=== PATIENT | male | born 1960 | race Hispanic/Latino ===

== ENCOUNTER 2020-02-14 21:08 | Inpatient (IN) | payer OTHER, MEDICAID, SELFPAY ==
[2020-02-14] VITALS (8 sets, daily range): BP systolic 114–124; BP diastolic 65–79; PULSE 94–101; RESP 31–41; TEMP 38.4–39.6; O2SAT 83–92; BMI 27.9
--- NOTE | 2020-02-14 21:39 | DI.RAD.S_ITS ---
PROCEDURE: XR CHEST 1V INDICATIONS: flu-like symptoms TECHNIQUE: One view of the chest was acquired. COMPARISON: None. FINDINGS: Surgical changes and devices: None. Lungs and pleura: Low lung volumes are noted. This causes a crowded appearance to the lung markings and limits evaluation. Bilateral interstitial type infiltrates are seen. No pneumothorax or pleural effusions are seen. Mediastinum: Mediastinal contours appear normal. Heart size is normal. Bones and chest wall: No suspicious bony lesions. Age-appropriate bony degenerative changes are seen. Overlying soft tissues appear unremarkable. IMPRESSION: Bilateral interstitial infiltrates are seen. Please consider COVID pneumonia. Note: No significant discrepancy from the preliminary report. Dictated by: Tutu Martinez M.D. on 02/15/2020 at 8:16 Approved by: Tutu Martinez M.D. on 02/15/2020 at 8:16
[2020-02-14 21:58] LABS: Add Manual Diff / Slide Review NO; Basophils Absolute Auto 0 /uL (0-100); Basophils Percent Auto 0.2 % (0-2); Eosinophils Absolute Auto 0 /uL (0-450); Hematocrit 38.6 % (41-53); Lymphocytes Absolute Auto 1000 /uL (1100-4500); Lymphocytes Percent Auto 6.1 % (25-40); Mean Corpuscular HGB Conc 33.7 % (30-36); Mean Corpuscular Hemoglobin 30.5 PG (26-34); Mean Corpuscular Volume 90.4 fL (80-100); Monocytes Absolute Auto 700 /uL (0-900); Monocytes Percent Auto 4.1 % (3-14); Neutrophils Absolute Auto 14300 /uL (1500-7000); Neutrophils Percent Auto 89.6 % (50-75); Platelet Count 318 X10^3/uL (150-400); Red Blood Cell Count 4.27 X10^6/uL (4.5-5.9); Red Cell Distribution Width 13.3 % (11.6-14.8); White Blood Cell Count 15.9 X10^3/uL (4.5-11.0)
[2020-02-14] MEDS: ACETAMINOPHEN 325 MG TABLET 975 MG PO (21:58)
[2020-02-14 22:08] LABS: D Dimer 751 ng/mL (<230); Lactate (Lactic Acid) 1.6 mmol/L (0.7-2.1)
[2020-02-14 22:21] LABS: Alanine Aminotransferase 83 IU/L (<50); Albumin 3.8 g/dL (3.5-5.0); Alkaline Phosphatase 122 U/L (38-126); Aspartate Aminotransferase 68 IU/L (17-59); BUN Creatinine Ratio 19.4 (6-22); Bilirubin Total 0.5 mg/dL (0.2-1.3); Blood Urea Nitrogen 14 mg/dL (9-20); Calcium 9.1 mg/dL (8.4-10.2); Carbon Dioxide 26 mmol/L (22-32); Chloride 104 mmol/L (98-107); Creatine Kinase 181 U/L (55-170); Estimated Glomerular Filt Rate > 60.0 mL/min (>60); Glucose 169 mg/dL (70-100); HEMOLYSIS < 15 (0-50); Lactate Dehydrogenase 981 U/L (313-618); Sodium 137 mmol/L (137-145); Total Protein 7.8 g/dL (6.3-8.2)
--- NOTE | 2020-02-14 22:26 | ED.SOB ---
HPI - SOB/Dyspnea General Chief Complaint: Shortness of Breath/Dyspnea Stated Complaint: cough, sob, low O2 Time Seen by Provider: 02/14/20 21:22 Source: patient and family Mode of arrival: Wheelchair Limitations: language barrier History of Present Illness HPI Narrative: Patient is a 59-year-old male who is Macedonian speaking with to interpret he is a known positive COVID-19 patient. He actually tested positive last week, after his son tested positive from working in a nursing home home. He was seen and evaluated at [facility] twice this week for some a 2nd and then again yesterday and discharged home both times saying that he did not need to be admitted. He has been monitoring his oxygen with a home pulse oximeter and self pronating which does help. However today he has had low oxygen numbers in 83% and sometimes even 77 when he is coughing. He is febrile here. MD Complaint: shortness of breath and cough Onset (ago): day(s) Related Data Home Medications Medication Instructions Recorded Confirmed Vitamin D3 1 cap PO DAILY 02/15/20 02/15/20 albuterol sulfate 2 puff INHALATION Q4H PRN 02/15/20 02/15/20 lisinopril 10 mg PO DAILY 02/15/20 02/15/20 Allergies Allergy/AdvReac Type Severity Reaction Status Date / Time No Known Drug Allergies Allergy Verified 02/14/20 22:09 Review of Systems Review of Systems ROS Unobtainable: All systems reviewed & are unremarkable except as noted in HPI and below Constitutional Constitutional: Denies chills, Denies fever(s), Denies lethargy and Denies weakness Cardiovascular Cardiovascular: Denies chest pain, Denies irregular heart rhythm, Denies lightheadedness, Denies palpitations and Denies orthopnea Respiratory Respiratory: Reports as per HPI Gastrointestinal Gastrointestinal: Denies abdominal pain, Denies change in bowel habits, Denies diarrhea, Denies nausea and Denies vomiting Integumentary/Breasts Skin/Breast: Denies pruritus, Denies erythema, Denies rash and Denies wounds Neurologic Neurologic: Denies weakness Endocrine Endocrine: Denies palpitations Patient History Medical History Basal cell carcinoma Chronic pain syndrome Hyperlipidemia Hypertension Prediabetes Surgical History (Updated 02/15/20 @ 00:49 by FLAQUITO Marin) History of appendectomy History of hernia repair History of knee surgery Family History (Updated 02/15/20 @ 00:49 by FLAQUITO Marin) Father Diabetes mellitus Mother COPD (chronic obstructive pulmonary disease) Social History household members: spouse and children Smoking Status: Never smoker alcohol intake: current Smoking Status: Never smoker alcohol intake frequency: a few times a week Alcohol type: beer Substance Use Type: does not use Exam Initial Vital Signs Initial Vital Signs: Vital Signs Temperature 103.2 F H 02/14/20 21:10 Pulse Rate 100 H 02/14/20 21:10 Respiratory Rate 31 H 02/14/20 21:10 Blood Pressure 124/79 02/14/20 21:10 Pulse Oximetry 83 L 02/14/20 21:10 GENERAL: Alert male appears in mild distress HEENT: Head atraumatic,EOMI, pupils reactive, face symmetric, moist mucous membranes CARDIOVASCULAR: Regular rate and rhythm without murmurs, rubs or gallops. RESPIRATORY: Decreased breath sounds bilaterally ABDOMEN: Soft, nontender. Normoactive bowel sounds all 4 quadrants. No guarding or rebound. EXTREMITIES: Normal range of motion, no clubbing or edema. Neurovascularly intact NEUROLOGICAL: Alert and oriented x4.Normal gait and speech. SKIN: Warm, dry, no laceration, no petechiae, no rashes or lesions. Course Orders Ordered: ED Orders 02/14/20 21:30 C-Reactive Protein Quant Stat Complete Blood Count AUTO DIFF Stat Comprehensive Metabolic Panel Stat D Dimer Stat Ferritin Stat Lactate (Lactic Acid) Stat Lactate Dehydrogenase Stat NT-proBNP (BNP-Adult 18+) Stat Procalcitonin Stat Troponin & CK Cardiac Panel Stat 02/14/20 21:39 XR chest 1V Stat 02/14/20 21:52 EKG-12 Lead Stat 02/14/20 22:00 Blood Culture Stat 02/14/20 22:08 Arterial Blood Gas Stat 02/14/20 23:00 COVID19 Stat Acetaminophen (Acetaminophen 325 Mg Tablet) 650 mg PO Q4HR REGINO Last Admin: 02/15/20 01:38 Dose: 650 mg Documented by: DLOUIS Albuterol (Albuterol Hfa 200 Puff/18 Gm Inh (Covid Pos/Vent Pts)) 2 puff INH RTQ4HR PRN PRN Reason: Wheezing Dexamethasone (Dexamethasone 10 Mg/Ml Vial) 6 mg IV DAILY [facility] Last Admin: 02/15/20 02:51 Dose: Not Given Documented by: JAROD Dextrose (Dextrose 50 % In Water 25 Gm/50 Ml Syringe) 25 gm IV PRN PRN; Protocol PRN Reason: Hypoglycemia Docusate Sodium (Docusate 100 Mg Capsule) 100 mg PO BID [facility] Guaifenesin (Guaifenesin Er 600 Mg Tab) 600 mg PO BID [facility] Heparin Sodium (Porcine) (Heparin 5,000 Unit/Ml Vial) 5,000 unit SUBCUT BID [facility] Famotidine (Pepcid) 20 mg in 50 mls @ 200 mls/hr IV Q12HR [facility] Last Admin: 02/15/20 02:18 Dose: 200 mls/hr Documented by: JAROD Remdesivir 100 mg/ Sodium (Chloride) 250 mls @ 250 mls/hr IV Q24H [facility] Stop: 02/18/20 23:59 Last Admin: 02/15/20 01:00 Dose: 250 mls/hr Documented by: JAROD Insulin Aspart (Insulin Aspart 100 Unit/Ml Insuln Pen) 0 unit SUBCUT ACHS [facility]; Protocol Lisinopril (Lisinopril 10 Mg Tablet) 10 mg PO DAILY [facility] Melatonin (Melatonin 3 Mg Tablet) 6 mg PO BEDTIME [facility] Last Admin: 02/15/20 01:39 Dose: 6 mg Documented by: JAROD Naloxone HCl (Naloxone 0.4 Mg/Ml Vial) 0.2 mg IV Q2MIN PRN PRN Reason: Opiate Reversal Non-Formulary Medication (Vitamin D3) 1 cap PO DAILY [facility] Ondansetron HCl (Ondansetron 4 Mg/2 Ml Inj) 4 mg IV Q8HR PRN PRN Reason: Nausea And Vomiting Tramadol HCl (Tramadol 50 Mg Tablet) 50 mg PO QID PRN PRN Reason: Pain, Moderate (4-6) Vitamin D (Cholecalciferol (Vitamin D3) 1,000 Unit Tablet) 2,000 unit PO DAILY [facility] Discontinued Medications Acetaminophen (Acetaminophen 325 Mg Tablet) 975 mg PO NOW ONE Stop: 02/14/20 21:53 Last Admin: 02/14/20 21:58 Dose: 975 mg Documented by: REYMUNDO Dexamethasone (Dexamethasone 10 Mg/Ml Vial) 6 mg IV NOW ONE Stop: 02/14/20 23:18 Last Admin: 02/14/20 23:57 Dose: 6 mg Documented by: REYMUNDO Remdesivir 200 mg/ Sodium (Chloride) 250 mls @ 250 mls/hr IV NOW ONE Stop: 02/14/20 23:18 Last Admin: 02/14/20 23:58 Dose: 250 mls/hr Documented by: REYMUNDO Vital Signs Vital signs: Vital Signs - 8 hr 02/14/20 21:10 02/14/20 21:58 02/14/20 22:05 Temperature 103.2 F H 103.2 F H Pulse Rate 100 H 96 H Respiratory Rate 31 H 38 H Blood Pressure 124/79 Pulse Oximetry 83 L 89 L 02/14/20 22:30 02/14/20 22:59 02/14/20 23:00 Temperature Pulse Rate 101 H 99 H 94 H Respiratory Rate 39 H 41 H 36 H Blood Pressure 114/65 115/68 Pulse Oximetry 90 L 92 92 02/14/20 23:30 02/14/20 23:33 Temperature 101.1 F H Pulse Rate 95 H Respiratory Rate 33 H Blood Pressure 120/74 Pulse Oximetry 92 MDM - SOB/Dyspnea Lab Data Attestation: I reviewed the patient's lab results. Result diagrams: 02/14/20 21:30 02/14/20 21:30 Labs: Lab Results 02/14/20 02/14/20 02/14/20 Range/Units 21:30 21:30 21:30 WBC 15.9 H (4.5-11.0) X10^3/uL RBC 4.27 L (4.5-5.9) X10^6/uL Hgb 13.0 L (13.5-17.5) g/dL Hct 38.6 L (41-53) % MCV 90.4 (80-100) fL MCH 30.5 (26-34) PG MCHC 33.7 (30-36) % RDW 13.3 (11.6-14.8) % Plt Count 318 (150-400) X10^3/uL Neut % (Auto) 89.6 H (50-75) % Lymph % (Auto) 6.1 L (25-40) % [place] % (Auto) 4.1 (3-14) % Eos % (Auto) 0.0 L (2-4) % Baso % (Auto) 0.2 (0-2) % Neut # (Auto) 37691 H (8353-3635) /uL Lymph # (Auto) 1000 L (6342-8746) /uL [place] # (Auto) 700 (0-900) /uL Eos # (Auto) 0 (0-450) /uL Baso # (Auto) 0 (0-100) /uL D-Dimer 751 H (<230) ng/mL ABG pH (7.35-7.45) ABG pCO2 (35-45) mmHg ABG pO2 (80-100) mmHg ABG HCO3 (22-26) mmol/L ABG Total CO2 (21-31) mmol/L ABG O2 Saturation (95-100) % ABG Base Excess (-2-2) mmol/L FiO2 Sodium (137-145) mmol/L Potassium (3.4-5.1) mmol/L Chloride (98-107) mmol/L Carbon Dioxide (22-32) mmol/L BUN (9-20) mg/dL Creatinine (0.66-1.25) mg/dL Estimated GFR (>60) mL/min BUN/Creatinine Ratio (6-22) Glucose (70-100) mg/dL Lactate (0.7-2.1) mmol/L Calcium (8.4-10.2) mg/dL Magnesium (1.6-2.3) mg/dL Ferritin (18-464) ng/mL Total Bilirubin (0.2-1.3) mg/dL AST (17-59) IU/L ALT (<50) IU/L Alkaline Phosphatase (38-126) U/L Lactate Dehydrogenase (313-618) U/L Total Creatine Kinase (55-170) U/L CK-MB (CK-2) (<2.37) ng/mL CK-MB (CK-2) Rel Index (1.5-5.0) % Troponin I (0.01-0.034) ng/mL C-Reactive Protein (<1.0) mg/dL NT-Pro-B Natriuret Pep (<125) pg/mL Total Protein (6.3-8.2) g/dL Albumin (3.5-5.0) g/dL Globulin (1.7-4.1) g/dL Albumin/Globulin Ratio (1.0-2.8) Procalcitonin 0.13 (<0.5) ng/mL COVID-19 PCR (Negative) 02/14/20 02/14/20 02/14/20 Range/Units 21:30 21:30 21:30 WBC (4.5-11.0) X10^3/uL RBC (4.5-5.9) X10^6/uL Hgb (13.5-17.5) g/dL Hct (41-53) % MCV (80-100) fL MCH (26-34) PG MCHC (30-36) % RDW (11.6-14.8) % Plt Count (150-400) X10^3/uL Neut % (Auto) (50-75) % Lymph % (Auto) (25-40) % [place] % (Auto) (3-14) % Eos % (Auto) (2-4) % Baso % (Auto) (0-2) % Neut # (Auto) (6149-4100) /uL Lymph # (Auto) (8188-6083) /uL [place] # (Auto) (0-900) /uL Eos # (Auto) (0-450) /uL Baso # (Auto) (0-100) /uL D-Dimer (<230) ng/mL ABG pH (7.35-7.45) ABG pCO2 (35-45) mmHg ABG pO2 (80-100) mmHg ABG HCO3 (22-26) mmol/L ABG Total CO2 (21-31) mmol/L ABG O2 Saturation (95-100) % ABG Base Excess (-2-2) mmol/L FiO2 Sodium 137 (137-145) mmol/L Potassium 4.0 (3.4-5.1) mmol/L Chloride 104 (98-107) mmol/L Carbon Dioxide 26 (22-32) mmol/L BUN 14 (9-20) mg/dL Creatinine 0.72 (0.66-1.25) mg/dL Estimated GFR > 60.0 (>60) mL/min BUN/Creatinine Ratio 19.4 (6-22) Glucose 169 H (70-100) mg/dL Lactate 1.6 (0.7-2.1) mmol/L Calcium 9.1 (8.4-10.2) mg/dL Magnesium 2.4 H (1.6-2.3) mg/dL Ferritin 1330 H (18-464) ng/mL Total Bilirubin 0.5 (0.2-1.3) mg/dL AST 68 H (17-59) IU/L ALT 83 H (<50) IU/L Alkaline Phosphatase 122 (38-126) U/L Lactate Dehydrogenase 981 H (313-618) U/L Total Creatine Kinase 181 H (55-170) U/L CK-MB (CK-2) 0.51 (<2.37) ng/mL CK-MB (CK-2) Rel Index 0.3 L (1.5-5.0) % Troponin I < 0.012 (0.01-0.034) ng/mL C-Reactive Protein 16.7 H (<1.0) mg/dL NT-Pro-B Natriuret Pep 414 H (<125) pg/mL Total Protein 7.8 (6.3-8.2) g/dL Albumin 3.8 (3.5-5.0) g/dL Globulin 4.0 (1.7-4.1) g/dL Albumin/Globulin Ratio 1.0 (1.0-2.8) Procalcitonin (<0.5) ng/mL COVID-19 PCR (Negative) 02/14/20 02/14/20 Range/Units 22:08 23:00 WBC (4.5-11.0) X10^3/uL RBC (4.5-5.9) X10^6/uL Hgb (13.5-17.5) g/dL Hct (41-53) % MCV (80-100) fL MCH (26-34) PG MCHC (30-36) % RDW (11.6-14.8) % Plt Count (150-400) X10^3/uL Neut % (Auto) (50-75) % Lymph % (Auto) (25-40) % [place] % (Auto) (3-14) % Eos % (Auto) (2-4) % Baso % (Auto) (0-2) % Neut # (Auto) (1438-3292) /uL Lymph # (Auto) (2632-9460) /uL [place] # (Auto) (0-900) /uL Eos # (Auto) (0-450) /uL Baso # (Auto) (0-100) /uL D-Dimer (<230) ng/mL ABG pH 7.50 H (7.35-7.45) ABG pCO2 29.8 L (35-45) mmHg ABG pO2 55 L (80-100) mmHg ABG HCO3 23 (22-26) mmol/L ABG Total CO2 24 (21-31) mmol/L ABG O2 Saturation 91 L (95-100) % ABG Base Excess 0.0 (-2-2) mmol/L FiO2 32 Sodium (137-145) mmol/L Potassium (3.4-5.1) mmol/L Chloride (98-107) mmol/L Carbon Dioxide (22-32) mmol/L BUN (9-20) mg/dL Creatinine (0.66-1.25) mg/dL Estimated GFR (>60) mL/min BUN/Creatinine Ratio (6-22) Glucose (70-100) mg/dL Lactate (0.7-2.1) mmol/L Calcium (8.4-10.2) mg/dL Magnesium (1.6-2.3) mg/dL Ferritin (18-464) ng/mL Total Bilirubin (0.2-1.3) mg/dL AST (17-59) IU/L ALT (<50) IU/L Alkaline Phosphatase (38-126) U/L Lactate Dehydrogenase (313-618) U/L Total Creatine Kinase (55-170) U/L CK-MB (CK-2) (<2.37) ng/mL CK-MB (CK-2) Rel Index (1.5-5.0) % Troponin I (0.01-0.034) ng/mL C-Reactive Protein (<1.0) mg/dL NT-Pro-B Natriuret Pep (<125) pg/mL Total Protein (6.3-8.2) g/dL Albumin (3.5-5.0) g/dL Globulin (1.7-4.1) g/dL Albumin/Globulin Ratio (1.0-2.8) Procalcitonin (<0.5) ng/mL COVID-19 PCR Positive H (Negative) Imaging Data Chest x-ray: Radiologist's Impression: Diffuse bilateral infiltrate suspicious for pneumonitis ECG Data Attestation: I personally reviewed and interpreted this ECG as follows: Prior ECG tracings: not available for review Interpretation: Normal sinus rhythm rate 94 p.r. interval 136 QR S1 O2 QTC [address] changes no T-wave inversions no priors to compare MDM Narrative Medical decision making narrative: Patient is obviously requiring oxygen at this time. He is febrile he has elevated inflammatory markers. At this time he does require admission to the hospital. He is requesting not to be intubated I have discussed options with him he is agreeable to nasal cannula high flow. He has had multiple family members with intubations so he is fearful of it. He understands that without it he may as well. However at this time he does not want to. I have updated Klaus HUDDLESTON of patient's wishes signs and symptoms. This time he does agree with admission he is in ED to see and evaluate patient himself and to speak with the . Discharge Plan Departure Patient Disposition: Admitted As Inpatient Clinical Impression: COVID-19 Admit Date/Time: 02/14/20 23:43 Admit Provider: Jacob Alejo
[2020-02-14 22:31] LABS: NT-proBNP (BNP-Adult 18+) 414 pg/mL (<125); Troponin I < 0.012 ng/mL (0.01-0.034)
[2020-02-14 22:34] LABS: HCO3 ABG 23 mmol/L (22-26); PCO2 ABG 29.8 mmHg (35-45); PO2 ABG 55 mmHg (80-100)
[2020-02-14 22:34] LABS: Procalcitonin 0.13 ng/mL (<0.5)
[2020-02-14 22:35] LABS: Fractionated Inspired Oxygen 32; Oxygen Saturation ABG 91 % (95-100); TCO2 ABG 24 mmol/L (21-31)
[2020-02-14 22:36] LABS: C-Reactive Protein Quant 16.7 mg/dL (<1.0)
[2020-02-14 23:38] LABS: CKMB % Relative Index 0.3 % (1.5-5.0); Creatine Kinase MB 0.51 ng/mL (<2.37); Ferritin 1330 ng/mL (18-464)
[2020-02-14 23:38] LABS: COVID19 -Nasal RAPID POSITIVE (Negative)
--- NOTE | 2020-02-14 23:46 | PM.HP.1 ---
History of Present Illness History of Present Illness Date Patient Seen: 02/14/20 Time Patient Seen: 23:41 Chief complaint: cough, sob, low O2 Narrative: Mr. Caleb Hyman is a 59-year-old male who is Irish-speaking only who is a known COVID hot is patient with a past medical history significant only for hypertension (medical records from [facility] further identify pre diabetes, hyperlipidemia and chronic pain syndrome as well as basal cell carcinoma) who presents to the ER with fevers and worsening shortness of breath. The patient has been ill for 13 days after his son tested positive who was working at a senior living. The patient has tested positive for COVID-19 and seen twice at [facility] and discharged to home. Yesterday on his 04 14 visit Yesterday the patient was seen and chest x-ray taken which demonstrated worsening bilateral patchy airspace opacities with the patient was not hypoxic and was discharged home with a pulse oximeter and instructions to prone 8 hours at a time. Today the patient was developing high fevers with progressive shortness of breath as measured by pulse ox down into the 70s with activity and lower with coughing. The patient denies complaints of headaches or dizziness, has no visual changes, nasal congestion or sore throat. He denies chest pain and no chest wall pain on deep inspiration. He has no palpitations. Has significant dyspnea, only being able to speak few words without taking a breath. He has a productive cough clear sputum and denies wheezing. He endorses complaints of epigastric discomfort/heartburn but no abdominal pain, nausea vomiting. The patient states his last bowel movement was this afternoon and denies urinary difficulties. Does report left knee pain and uses assistive devices at home. Upon arrival to the ER the patient is febrile at of 103.2?, tachycardic at 100, blood pressure 124/79 tachypneic with a respiratory rate of 31 saturating 83% on room air. Chest x-ray obtained which finds diffuse bilateral infiltrates suspicious for pneumonitis. ABG is obtained which finds a pH of 7.5, pCO2 of 29.8, PO2 55, bicarb of 23 on 35% FiO2. Laboratory analysis finds a white count of 15.9, hemoglobin 13.0, hematocrit of 38.6 and platelets of 318. His electrolytes are all within normal range she has a BUN of 14 and a creatinine is 0.72. His nonfasting blood sugar is 169. On liver function has a total bilirubin of 0.5, AST 60, ALT of 83 and alkaline phosphatase of 122. D-dimer is elevated at 751. LDH is elevated at 981 and total CK is 181 with MB fraction of 0.51 with an index of 0.3. Troponin is negative at less than 0.012. His elevated C reactive from protein at 16.7 and a proBNP of 414. Lactic acid is 1.6. Procalcitonin is within normal range at 0.13. Patient started on oxygen nasal cannula 5 L with improvement in oxygen saturation to mid 90s incomplete relief of dyspnea. The patient is given Tylenol for his fever and started on remdesivir 200 mg and Decadron 6 mg. The patient is admitted to the hospitalist service for COVID 19 pneumonia. Primary care provider is Suma Dawson MD Patient History Medical History Basal cell carcinoma Chronic pain syndrome Hyperlipidemia Hypertension Prediabetes Surgical History (Updated 02/15/20 @ 00:49 by FLAQUITO Marin) History of appendectomy History of hernia repair History of knee surgery Family & Social History Family History (Updated 02/15/20 @ 00:49 by FLAQUITO Marin) Father Diabetes mellitus Mother COPD (chronic obstructive pulmonary disease) Safety & Behavioral: Feels Safe in Current Yes Environment Tobacco & Substance use: Smoking Status Never smoker alcohol intake frequency a few times a week Substance Use Type does not use Meds Home Medications and Allergies Home Medications Medication Instructions Recorded Confirmed Type Vitamin D3 1 cap PO DAILY 02/15/20 02/15/20 History albuterol sulfate 2 puff INHALATION Q4H PRN 02/15/20 02/15/20 History lisinopril 10 mg PO DAILY 02/15/20 02/15/20 History Allergies Allergy/AdvReac Type Severity Reaction Status Date / Time No Known Drug Allergies Allergy Verified 02/14/20 22:09 Review of Systems Review of Systems ROS: Yes All systems reviewed with the patient and are negative except as otherwise documented Exam Vital Signs (past 8 hours): - 02/14/20 21:10 02/14/20 21:58 02/14/20 22:05 Temperature 103.2 F H 103.2 F H Pulse Rate 100 H 96 H Respiratory Rate 31 H 38 H Blood Pressure 124/79 Pulse Oximetry 83 L 89 L 02/14/20 22:30 02/14/20 22:59 02/14/20 23:00 Temperature Pulse Rate 101 H 99 H 94 H Respiratory Rate 39 H 41 H 36 H Blood Pressure 114/65 115/68 Pulse Oximetry 90 L 92 92 02/14/20 23:30 02/14/20 23:33 02/15/20 00:29 Temperature 101.1 F H 99.4 F Pulse Rate 95 H 83 Respiratory Rate 33 H 18 Blood Pressure 120/74 130/56 L Pulse Oximetry 92 95 Oxygen Delivery Method Nasal Cannula Oxygen Flow Rate 5 Narrative Exam Narrative: GENERAL APPEARANCE: well developed, well nourished, sitting upright on ER stretcher conversant with mild dyspnea. HEENT: Normocephalic, PERRLA, conjunctiva clear, sclera is anicteric, EOMs intact without nystagmus, no sinus tenderness to percussion, no rhinorrhea, mucous membranes are moist and pink without lesions or exudate. NECK/THYROID: neck supple, no JVD, no carotid bruit, no thyromegaly, trachea midline. LYMPH NODES: no cervical or supraclavicular lymphadenopathy. SKIN: [place], warm and dry, no visible lesions or rashes HEART: regular rate and rhythm, S1-split S2, no murmur, no rubs or gallops, brisk capillary refill, no edema LUNGS: clear to auscultation bilaterally, no coarseness crackles or wheezing, no cough present CHEST: Symmetrical movement, no accessory muscle use, good tidal volume. ABDOMEN: Soft, no distention, no abdominal tenderness, no guarding or peritoneal signs, no organomegaly, no flank or suprapubic tenderness, active bowel tones. BACK: Normal curvature, nontender to palpation, no CVA tenderness on percussion EXTREMITIES: Left knee pain strength is 5/5 and symmetrical, gait not assessed. NEUROLOGIC: AAO x4, no focal neurologic deficits, cranial nerves II-XII grossly intact, sensation intact to light touch, hearing grossly normal to speech. PSYCH: Briskly interactive, cooperative, appropriate with stable behavior Objective Labs Result Diagrams: 02/14/20 21:30 02/14/20 21:30 Labs: Laboratory Results - last 24 hr 02/14/20 02/14/20 02/14/20 21:30 21:30 21:30 WBC 15.9 H RBC 4.27 L Hgb 13.0 L Hct 38.6 L MCV 90.4 MCH 30.5 MCHC 33.7 RDW 13.3 Plt Count 318 Neut % (Auto) 89.6 H Lymph % (Auto) 6.1 L Ness % (Auto) 4.1 Eos % (Auto) 0.0 L Baso % (Auto) 0.2 Neut # (Auto) 51912 H Lymph # (Auto) 1000 L Ness # (Auto) 700 Eos # (Auto) 0 Baso # (Auto) 0 D-Dimer 751 H ABG pH ABG pCO2 ABG pO2 ABG HCO3 ABG Total CO2 ABG O2 Saturation ABG Base Excess FiO2 Sodium Potassium Chloride Carbon Dioxide BUN Creatinine Estimated GFR BUN/Creatinine Ratio Glucose Lactate Calcium Ferritin Total Bilirubin AST ALT Alkaline Phosphatase Lactate Dehydrogenase Total Creatine Kinase CK-MB (CK-2) CK-MB (CK-2) Rel Index Troponin I C-Reactive Protein NT-Pro-B Natriuret Pep Total Protein Albumin Globulin Albumin/Globulin Ratio Procalcitonin 0.13 COVID-19 PCR 02/14/20 02/14/20 02/14/20 21:30 21:30 22:08 WBC RBC Hgb Hct MCV MCH MCHC RDW Plt Count Neut % (Auto) Lymph % (Auto) Ness % (Auto) Eos % (Auto) Baso % (Auto) Neut # (Auto) Lymph # (Auto) Ness # (Auto) Eos # (Auto) Baso # (Auto) D-Dimer ABG pH 7.50 H ABG pCO2 29.8 L ABG pO2 55 L ABG HCO3 23 ABG Total CO2 24 ABG O2 Saturation 91 L ABG Base Excess 0.0 FiO2 32 Sodium 137 Potassium 4.0 Chloride 104 Carbon Dioxide 26 BUN 14 Creatinine 0.72 Estimated GFR > 60.0 BUN/Creatinine Ratio 19.4 Glucose 169 H Lactate 1.6 Calcium 9.1 Ferritin 1330 H Total Bilirubin 0.5 AST 68 H ALT 83 H Alkaline Phosphatase 122 Lactate Dehydrogenase 981 H Total Creatine Kinase 181 H CK-MB (CK-2) 0.51 CK-MB (CK-2) Rel Index 0.3 L Troponin I < 0.012 C-Reactive Protein 16.7 H NT-Pro-B Natriuret Pep 414 H Total Protein 7.8 Albumin 3.8 Globulin 4.0 Albumin/Globulin Ratio 1.0 Procalcitonin COVID-19 PCR 02/14/20 23:00 WBC RBC Hgb Hct MCV MCH MCHC RDW Plt Count Neut % (Auto) Lymph % (Auto) Ness % (Auto) Eos % (Auto) Baso % (Auto) Neut # (Auto) Lymph # (Auto) Ness # (Auto) Eos # (Auto) Baso # (Auto) D-Dimer ABG pH ABG pCO2 ABG pO2 ABG HCO3 ABG Total CO2 ABG O2 Saturation ABG Base Excess FiO2 Sodium Potassium Chloride Carbon Dioxide BUN Creatinine Estimated GFR BUN/Creatinine Ratio Glucose Lactate Calcium Ferritin Total Bilirubin AST ALT Alkaline Phosphatase Lactate Dehydrogenase Total Creatine Kinase CK-MB (CK-2) CK-MB (CK-2) Rel Index Troponin I C-Reactive Protein NT-Pro-B Natriuret Pep Total Protein Albumin Globulin Albumin/Globulin Ratio Procalcitonin COVID-19 PCR Positive H Assessment & Plan Assessment & Plan narrative: This is a 59-year-old male patient with a past medical history significant for hypertension, prediabetes hyperlipidemia chronic pain syndrome who presents to the ER with progressive COVID-19 symptoms. The patient has been symptomatic for 13 days and is previously tested positive with serial evaluations at [facility] but not yet found to be hypoxic. Patient presents today with fevers and progressive dyspnea. 1. Sepsis without shock, acute, present on admission, active -patient reports onset of symptoms 13 days ago and has been becoming progressively worse. Patient is seen the previous 2 days at [facility] where he was found not to yet be hypoxic. -patient with acute decompensation of the respiratory system with a PF ratio of less than 300. -patient presents with a respiratory rate of 31 saturating 83% on room air. -will treat underlying COVID-19 pneumonia as below. 2. Acute respiratory failure with hypoxia, present on admission, active -on presentation the patient's respiratory rate of 31 with an SpO2 of 83 on room air. ABG reveals a pH of 7.5, pCO2 of 29.8, PaO2 of 55, bicarb of 23 with a base excess of 0 on 32% FiO2. -patient started on supplemental oxygen with nasal cannula 5 liters/minute, Respiratory rate improves to 18 and SpO2 is 95%. Will titrate oxygen as needed. -per pulmonology recommendations will target goal SpO2 greater than 88%, PaO2 greater than 55% and respiratory rate less than 30 at rest. -will treat underlying COVID-19 pneumonia as below. -respiratory therapy to consult evaluate and treat. -patient will remain on continuous pulse oximetry and cardiac telemetry. 3. Acute COVID-19 pneumonia, present on admission, active. -patient has previously tested positive for COVID-19 and again tests positive on COVID screening today. -patient has other confirmatory markers including an elevated D-dimer at 751, CRP elevated at 16.7, LDH of 981 ferritin is 1330 elevated total CK of 181 with a low MB fraction at 0.51 an index of 0.3. Troponin is negative slight elevation of proBNP of 414. Procalcitonin is-0.13. -chest x-ray finds diffuse bilateral infiltrates suspicious for pneumonitis. -patient has been running and will continue to prone aggressively. -order remdesivir, initial loading dose of 200 mg initiated in the emergency department, will continue remdesivir 100 mg IV daily for 4 doses. -ordered dexamethasone 6 mg IV daily, 1st dose given in the ER. -ordered albuterol inhaler 2 puffs every 4 hours as needed for wheezing only. -ordered melatonin 6 mg at bedtime for both sleep promotion as well as potential antiviral effects. 4. Pre diabetes with hyperglycemia, chronic, stable. -patient is not on glucose lowering medication and has an admission serum glucose of 169. -the patient will be receiving Decadron with expected elevation in serum glucose levels. -ordered fingerstick blood sugars a.c. and hs and coverage with low-dose correctional insulin. -will trend blood sugars to maintain glycemic control. -will obtain a hemoglobin A1c. 5. Hypertension, chronic, stable. -will continue home regimen of lisinopril 10 mg daily in accordance with current recommendations to continue Daryl inhibitor in patient's on the medication with COVID-19 pneumonia. 6. Hyperlipidemia, chronic, stable. -the patient states not currently taking medication for cholesterol. Per the medical record from [facility] this atorvastatin 20 mg daily. -will obtain a lipid panel. VTE prophylaxis: Heparin IV fluid: Saline lock Diet: Small Consistent carbohydrate Code status: Full code, the patient wishes CPR but states DO NOT INTUBATE. The patient has 2 family members in [place] or intubated and from COVID-19. He designates his to as is surrogate decision maker. Patient is admitted to the hospital due to the progression in severity of his symptoms for close monitoring and treatment to reduce the risk for at complications and adverse events and the complexity of the treatment plan. The patient is admitted as an inpatient with expected length of stay to be greater than 2 midnights. COVID-19 COVID-19 status: Positive Result date/Date tested (Pos, Neg/Pending): 02/14/20 Scores GCS [place] coma scale eye opening: Spontaneous [place] coma scale verbal response: Orientated [place] coma scale motor response: Obey commands [place] coma scale total score: 15 SOFA PaO2/FIO2: < 300 mmHg Platelets: >= 150 Bilirubin: < 1.2 mg/dL Hypotension: MAP >= 70 mmHg [place] Coma Scale: 15 Renal: < 1.2 mg/dL SOFA Score: 2
[2020-02-14] MEDS: DEXAMETHASONE 10 MG/ML VIAL 6 MG IV (23:57)
[2020-02-14] MEDS: REMDESIVIR 200 MG in SODIUM CHLORIDE 0.9% 210 ML 250 ML IV (23:58)
[2020-02-15] VITALS (43 sets, daily range): BP systolic 115–143; BP diastolic 56–95; PULSE 64–87; RESP 15–34; TEMP 36.8–37.4; O2SAT 89–99; BMI 27.9
[2020-02-15 00:54] LABS: Magnesium 2.4 mg/dL (1.6-2.3)
[2020-02-15] MEDS: REMDESIVIR 100 MG in SODIUM CHLORIDE 0.9% 230 ML 250 ML IV (01:00)
[2020-02-15] MEDS: ACETAMINOPHEN 325 MG TABLET 650 MG PO ×4 (01:38→12:42)
[2020-02-15] MEDS: MELATONIN 3 MG TABLET 6 MG PO ×2 (01:39→20:19)
[2020-02-15] MEDS: FAMOTIDINE 20 MG/50 ML PIGGYBACK 200 MG IV ×2 (02:18→12:42)
[2020-02-15 06:00] LABS: Add Manual Diff / Slide Review NO; Basophils Absolute Auto 0 /uL (0-100); Basophils Percent Auto 0.1 % (0-2); Eosinophils Absolute Auto 0 /uL (0-450); Hematocrit 40.6 % (41-53); Hemoglobin 13.4 g/dL (13.5-17.5); Lymphocytes Absolute Auto 1400 /uL (1100-4500); Lymphocytes Percent Auto 7.7 % (25-40); Mean Corpuscular Hemoglobin 30.4 PG (26-34); Monocytes Absolute Auto 900 /uL (0-900); Monocytes Percent Auto 4.9 % (3-14); Neutrophils Absolute Auto 15700 /uL (1500-7000); Neutrophils Percent Auto 87.3 % (50-75); Platelet Count 290 X10^3/uL (150-400); Red Blood Cell Count 4.41 X10^6/uL (4.5-5.9); Red Cell Distribution Width 13.3 % (11.6-14.8)
[2020-02-15 06:06] LABS: Alanine Aminotransferase 72 IU/L (<50); Albumin 3.6 g/dL (3.5-5.0); Albumin Globulin Ratio 0.9 (1.0-2.8); Alkaline Phosphatase 104 U/L (38-126); Aspartate Aminotransferase 55 IU/L (17-59); BUN Creatinine Ratio 24.4 (6-22); Bilirubin Total 0.5 mg/dL (0.2-1.3); Blood Urea Nitrogen 20 mg/dL (9-20); Calcium 8.8 mg/dL (8.4-10.2); Carbon Dioxide 28 mmol/L (22-32); Chloride 104 mmol/L (98-107); Estimated Glomerular Filt Rate > 60.0 mL/min (>60); Glucose 196 mg/dL (70-100); HEMOLYSIS < 15 (0-50); Potassium 4.6 mmol/L (3.4-5.1); Sodium 139 mmol/L (137-145); Total Protein 7.6 g/dL (6.3-8.2)
[2020-02-15 06:07] LABS: Hemoglobin A1C% w Est Avg Glu 6.4 % (4.0-6.0)
[2020-02-15] MEDS: CEFTRIAXONE 1 GM/50 ML FROZ.PIGGY IV (09:03)
[2020-02-15] MEDS: DEXAMETHASONE 10 MG/ML VIAL 6 MG IV (09:04)
[2020-02-15] MEDS: HEPARIN 5,000 UNIT/ML VIAL 5000 UNIT SUBCUT (09:04)
[2020-02-15] MEDS: CHOLECALCIFEROL (VITAMIN D3) 1,000 UNIT TABLET 2000 UNIT PO ×2 (09:05→09:06)
[2020-02-15] MEDS: DOCUSATE 100 MG CAPSULE PO ×2 (09:06→20:19)
[2020-02-15] MEDS: lisinopriL 10 MG TABLET PO (09:07)
[2020-02-15] MEDS: guaiFENesin ER 600 MG TAB PO ×2 (09:07→20:19)
[2020-02-15] MEDS: INSULIN ASPART 100 UNIT/ML INSULN PEN SUBCUT ×3 (09:37→16:59)
--- NOTE | 2020-02-15 09:57 | PT-IP ANOTE ---
Received PT orders and reviewed chart. Discussed case with Dr. Gregory at AM interdisciplinary rounds. Hospitalist stated pt is not appropriate for therapies at this time. Will discharge PT order.
[2020-02-15 11:01] LABS: Adenovirus Not Detected (Not Detect)
[2020-02-15 11:02] LABS: Bordetella pertussis Not Detected (Not Detect); Chlamydophila pneumoniae Not Detected (Not Detect); Coronavirus 229E Not Detected (Not Detect); Coronavirus HKU1 Not Detected (Not Detect); Coronavirus NL 63 Not Detected (Not Detect); Coronavirus OC43 Not Detected (Not Detect); Human Metapneumovirus Not Detected (Not Detect); Human Rhinovirus/Enterovirus Not Detected (Not Detect); Influenza A Not Detected (Not Detect); Influenza B Not Detected (Not Detect); Mycoplasma pneumoniae Not Detected (Not Detect); Parainfluenza Virus 1 Not Detected (Not Detect); Parainfluenza Virus 2 Not Detected (Not Detect); Parainfluenza Virus 3 Not Detected (Not Detect); Parainfluenza Virus 4 Not Detected (Not Detect); Respiratory Syncytial Virus Not Detected (Not Detect)
[2020-02-15 11:04] LABS: SARS- CoV-2 Detected (Not Detecte)
[2020-02-15] MEDS: AZITHROMYCIN 500 MG in DEXTROSE 5% IN WATER 250 ML IV (12:42)
--- NOTE | 2020-02-15 13:01 | PM.PN.1 ---
Subjective Subjective Date Patient Seen: 02/15/20 Time Patient Seen: 13:01 Interval history: Caleb Hyman is a 59-year-old male with a past medical history of hypertension, hyperlipidemia, and prediabetes who was admitted with COVID-19 pneumonia. He has had symptoms for the past 2 weeks, with worsening cough over the past week. He had been into the emergency room at [facility] over the past 2 weeks but discharged home. He is admitted with acute hypoxic respiratory failure. He was initially on supplemental oxygen via nasal cannula, but this needed to be increased high-flow nasal cannula. PaO2 on 3L was 55. Given his decompensation he was moved to the ICU in case he needed heated high-flow. He has high inflammatory markers and an elevated white count at 18 this morning. Given this repeat respiratory panel was sent which was negative. I did start him on antibiotics over concern for possible superimposed bacterial pneumonia given his leukocytosis as leukocytosis is not typical for COVID-19. He complains of continued productive cough, but otherwise denies worsening symptoms at this time. He complains of reflux symptoms and has been started on famotidine. Exam Vital Signs (past 8 hours): - 02/15/20 06:00 02/15/20 08:59 02/15/20 09:00 Temperature 98.2 F Pulse Rate 78 Respiratory Rate 18 24 Blood Pressure 136/84 Pulse Oximetry 96 90 L 95 02/15/20 09:03 Temperature 98.4 F Pulse Rate 78 Respiratory Rate 22 Blood Pressure 127/73 Pulse Oximetry 89 L Oxygen Delivery Method High Flow Nasal Cannula Oxygen Flow Rate 3 Narrative Exam Narrative: GENERAL APPEARANCE: well developed, well nourished, sitting upright on hospital bed conversant with mild dyspnea. HEENT: Normocephalic, PERRLA, conjunctiva clear, sclera is anicteric, EOMs intact without nystagmus, no sinus tenderness to percussion, no rhinorrhea, mucous membranes are moist and pink without lesions or exudate. NECK/THYROID: neck supple, no JVD, no carotid bruit, no thyromegaly, trachea midline. LYMPH NODES: no cervical or supraclavicular lymphadenopathy. SKIN: [place], warm and dry, no visible lesions or rashes HEART: regular rate and rhythm, S1-split S2, no murmur, no rubs or gallops, brisk capillary refill, no edema LUNGS: clear to auscultation bilaterally, no coarseness crackles or wheezing, cough present CHEST: Symmetrical movement, no accessory muscle use, good tidal volume. ABDOMEN: Soft, no distention, no abdominal tenderness, no guarding or peritoneal signs, no organomegaly, no flank or suprapubic tenderness, active bowel tones. BACK: Normal curvature, nontender to palpation, no CVA tenderness on percussion EXTREMITIES: Left knee pain strength is 5/5 and symmetrical, gait not assessed. NEUROLOGIC: AAO x4, no focal neurologic deficits, cranial nerves II-XII grossly intact, sensation intact to light touch, hearing grossly normal to speech. PSYCH: Briskly interactive, cooperative, appropriate with stable behavior Objective Labs Result Diagrams: 02/15/20 05:30 02/15/20 05:30 Labs: Laboratory Results - last 24 hr 02/14/20 02/14/20 02/14/20 21:30 21:30 21:30 WBC 15.9 H RBC 4.27 L Hgb 13.0 L Hct 38.6 L MCV 90.4 MCH 30.5 MCHC 33.7 RDW 13.3 Plt Count 318 Neut % (Auto) 89.6 H Lymph % (Auto) 6.1 L Greene % (Auto) 4.1 Eos % (Auto) 0.0 L Baso % (Auto) 0.2 Neut # (Auto) 13912 H Lymph # (Auto) 1000 L Greene # (Auto) 700 Eos # (Auto) 0 Baso # (Auto) 0 D-Dimer 751 H ABG pH ABG pCO2 ABG pO2 ABG HCO3 ABG Total CO2 ABG O2 Saturation ABG Base Excess FiO2 Sodium Potassium Chloride Carbon Dioxide BUN Creatinine Estimated GFR BUN/Creatinine Ratio Glucose Hemoglobin A1c Lactate Calcium Magnesium Ferritin Total Bilirubin AST ALT Alkaline Phosphatase Lactate Dehydrogenase Total Creatine Kinase CK-MB (CK-2) CK-MB (CK-2) Rel Index Troponin I C-Reactive Protein NT-Pro-B Natriuret Pep Total Protein Albumin Globulin Albumin/Globulin Ratio Procalcitonin 0.13 Chlamy pneumoniae PCR Adenovirus (PCR) B.parapertussis DNA PCR Coronavirus OC43 (PCR) Coronavirus HKU1 (PCR) Coronavirus 229E (PCR) COVID-19 PCR Coronavirus NL63 (PCR) Human Metapneumovir PCR Influenza Type A (PCR) Influenza Type B (PCR) M. pneumoniae (PCR) Parainfluenza 1 (PCR) Parainfluenza 2 (PCR) Parainfluenza 3 (PCR) Parainfluenza 4 (PCR) RSV (PCR) Entero/Rhino (PCR) 02/14/20 02/14/20 02/14/20 21:30 21:30 21:30 WBC RBC Hgb Hct MCV MCH MCHC RDW Plt Count Neut % (Auto) Lymph % (Auto) Greene % (Auto) Eos % (Auto) Baso % (Auto) Neut # (Auto) Lymph # (Auto) Greene # (Auto) Eos # (Auto) Baso # (Auto) D-Dimer ABG pH ABG pCO2 ABG pO2 ABG HCO3 ABG Total CO2 ABG O2 Saturation ABG Base Excess FiO2 Sodium 137 Potassium 4.0 Chloride 104 Carbon Dioxide 26 BUN 14 Creatinine 0.72 Estimated GFR > 60.0 BUN/Creatinine Ratio 19.4 Glucose 169 H Hemoglobin A1c Lactate 1.6 Calcium 9.1 Magnesium 2.4 H Ferritin 1330 H Total Bilirubin 0.5 AST 68 H ALT 83 H Alkaline Phosphatase 122 Lactate Dehydrogenase 981 H Total Creatine Kinase 181 H CK-MB (CK-2) 0.51 CK-MB (CK-2) Rel Index 0.3 L Troponin I < 0.012 C-Reactive Protein 16.7 H NT-Pro-B Natriuret Pep 414 H Total Protein 7.8 Albumin 3.8 Globulin 4.0 Albumin/Globulin Ratio 1.0 Procalcitonin Chlamy pneumoniae PCR Adenovirus (PCR) B.parapertussis DNA PCR Coronavirus OC43 (PCR) Coronavirus HKU1 (PCR) Coronavirus 229E (PCR) COVID-19 PCR Coronavirus NL63 (PCR) Human Metapneumovir PCR Influenza Type A (PCR) Influenza Type B (PCR) M. pneumoniae (PCR) Parainfluenza 1 (PCR) Parainfluenza 2 (PCR) Parainfluenza 3 (PCR) Parainfluenza 4 (PCR) RSV (PCR) Entero/Rhino (PCR) 02/14/20 02/14/20 02/15/20 22:08 23:00 05:30 WBC 18.0 H RBC 4.41 L Hgb 13.4 L Hct 40.6 L MCV 92.0 MCH 30.4 MCHC 33.0 RDW 13.3 Plt Count 290 Neut % (Auto) 87.3 H Lymph % (Auto) 7.7 L Greene % (Auto) 4.9 Eos % (Auto) 0.0 L Baso % (Auto) 0.1 Neut # (Auto) 60012 H Lymph # (Auto) 1400 Greene # (Auto) 900 Eos # (Auto) 0 Baso # (Auto) 0 D-Dimer ABG pH 7.50 H ABG pCO2 29.8 L ABG pO2 55 L ABG HCO3 23 ABG Total CO2 24 ABG O2 Saturation 91 L ABG Base Excess 0.0 FiO2 32 Sodium Potassium Chloride Carbon Dioxide BUN Creatinine Estimated GFR BUN/Creatinine Ratio Glucose Hemoglobin A1c Lactate Calcium Magnesium Ferritin Total Bilirubin AST ALT Alkaline Phosphatase Lactate Dehydrogenase Total Creatine Kinase CK-MB (CK-2) CK-MB (CK-2) Rel Index Troponin I C-Reactive Protein NT-Pro-B Natriuret Pep Total Protein Albumin Globulin Albumin/Globulin Ratio Procalcitonin Chlamy pneumoniae PCR Adenovirus (PCR) B.parapertussis DNA PCR Coronavirus OC43 (PCR) Coronavirus HKU1 (PCR) Coronavirus 229E (PCR) COVID-19 PCR Positive H Coronavirus NL63 (PCR) Human Metapneumovir PCR Influenza Type A (PCR) Influenza Type B (PCR) M. pneumoniae (PCR) Parainfluenza 1 (PCR) Parainfluenza 2 (PCR) Parainfluenza 3 (PCR) Parainfluenza 4 (PCR) RSV (PCR) Entero/Rhino (PCR) 02/15/20 02/15/20 02/15/20 05:30 05:30 09:50 WBC RBC Hgb Hct MCV MCH MCHC RDW Plt Count Neut % (Auto) Lymph % (Auto) Greene % (Auto) Eos % (Auto) Baso % (Auto) Neut # (Auto) Lymph # (Auto) Greene # (Auto) Eos # (Auto) Baso # (Auto) D-Dimer ABG pH ABG pCO2 ABG pO2 ABG HCO3 ABG Total CO2 ABG O2 Saturation ABG Base Excess FiO2 Sodium 139 Potassium 4.6 Chloride 104 Carbon Dioxide 28 BUN 20 Creatinine 0.82 Estimated GFR > 60.0 BUN/Creatinine Ratio 24.4 H Glucose 196 H Hemoglobin A1c 6.4 H Lactate Calcium 8.8 Magnesium Ferritin Total Bilirubin 0.5 AST 55 ALT 72 H Alkaline Phosphatase 104 Lactate Dehydrogenase Total Creatine Kinase CK-MB (CK-2) CK-MB (CK-2) Rel Index Troponin I C-Reactive Protein NT-Pro-B Natriuret Pep Total Protein 7.6 Albumin 3.6 Globulin 4.0 Albumin/Globulin Ratio 0.9 L Procalcitonin Chlamy pneumoniae PCR Not detected Adenovirus (PCR) Not detected B.parapertussis DNA PCR Not detected Coronavirus OC43 (PCR) Not detected Coronavirus HKU1 (PCR) Not detected Coronavirus 229E (PCR) Not detected COVID-19 PCR Detected Coronavirus NL63 (PCR) Not detected Human Metapneumovir PCR Not detected Influenza Type A (PCR) Not detected Influenza Type B (PCR) Not detected M. pneumoniae (PCR) Not detected Parainfluenza 1 (PCR) Not detected Parainfluenza 2 (PCR) Not detected Parainfluenza 3 (PCR) Not detected Parainfluenza 4 (PCR) Not detected RSV (PCR) Not detected Entero/Rhino (PCR) Not detected [facility] Medical History Basal cell carcinoma Chronic pain syndrome Hyperlipidemia Hypertension Prediabetes Surgical History History of appendectomy History of hernia repair History of knee surgery Family History Father Diabetes mellitus Mother COPD (chronic obstructive pulmonary disease) Social History household members: spouse and children Smoking Status: Never smoker alcohol intake: current Assessment & Plan Assessment & Plan narrative: This is a 59-year-old male patient with a past medical history significant for hypertension, prediabetes hyperlipidemia chronic pain syndrome who presents to the ER with progressive COVID-19 symptoms. He is admitted for acute hypoxic respiratory failure secondary to COVID-19 pneumonia with possible superimposed bacterial pneumonia. 1. Acute respiratory failure with hypoxia, present on admission, active -on presentation the patient's respiratory rate of 31 with an SpO2 of 83 on room air. ABG reveals a pH of 7.5, pCO2 of 29.8, PaO2 of 55, bicarb of 23 with a base excess of 0 on 32% FiO2. -patient started on supplemental oxygen with nasal cannula 5 liters/minute, Respiratory rate improves to 18 and SpO2 is 95%. Will titrate oxygen as needed. -per pulmonology recommendations will target goal SpO2 greater than 88%, PaO2 greater than 55% and respiratory rate less than 30 at rest. -will treat underlying COVID-19 pneumonia as below. Possible superimposed bacterial pneumonia given leukocytosis with left shift not typical for COVID 19 alone. Have started antibiotics with ceftriaxone and azithromycin. -respiratory therapy to consult evaluate and treat. -patient will remain on continuous pulse oximetry and cardiac telemetry. 2. Acute COVID-19 pneumonia, present on admission, active. -patient has previously tested positive for COVID-19 and again tests positive on COVID screening today. -patient has other confirmatory markers including an elevated D-dimer at 751, CRP elevated at 16.7, LDH of 981 ferritin is 1330 elevated total CK of 181 with a low MB fraction at 0.51 an index of 0.3. Troponin is negative slight elevation of proBNP of 414. Procalcitonin is-0.13. -chest x-ray finds diffuse bilateral infiltrates. Given leukocytosis started on ceftriaxone x5 days and azithomycin x3 days for possible superimposed bacterial pneumonia. -continue proning at 8 hour intervals as much as possible and continue supportive care. -continue dexamethasone x10 days or until discharge, whichever is soonest. Continue remdesevir x5 days, to a max of 10 if remains admitted. -ordered albuterol inhaler 2 puffs every 4 hours as needed for wheezing only. -ordered melatonin 6 mg at bedtime for both sleep promotion. -started on famotidine for reflux symptoms, as well as a possible therapeutic effect in COVID. 3. Pre diabetes with hyperglycemia, chronic, stable. -patient is not on glucose lowering medication and has an admission serum glucose of 169. -the patient will be receiving Decadron with expected elevation in serum glucose levels. -ordered fingerstick blood sugars a.c. and hs and coverage with low-dose correctional insulin. -will trend blood sugars to maintain glycemic control. -A1c is 6.4% consistent with pre-diabetes. 4. Hypertension, chronic, stable. -will continue home regimen of lisinopril 10 mg daily in accordance with current recommendations to continue Daryl inhibitor in patient's on the medication with COVID-19 pneumonia. 5. Hyperlipidemia, chronic, stable. -the patient states not currently taking medication for cholesterol. Per the medical record from [facility] this atorvastatin 20 mg daily. -will obtain a lipid panel. 6. sepsis ruled out - SOFA score is 2, but only secondary to acute respiratory failure. No other dysregulated response. VTE prophylaxis: Heparin IV fluid: Saline lock Diet: Small Consistent carbohydrate Code status: Full code, the patient wishes CPR but states DO NOT INTUBATE. Did discuss that normally CPR results in intubation but he does not wish to be intubated in the setting of only respiratory failure. The patient has 2 family members in [place] or intubated and from COVID-19. He designates his to as is surrogate decision maker. COVID-19 COVID-19 status: Positive Quality VTE Deep Vein Thrombosis/Pulmonary Embolism Present on Admission: No
--- NOTE | 2020-02-15 13:25 | PC.NURSE ---
Addendum entered by Daphne Pretty R.N. 02/15/20 13:40: Patient assisted to prone, tolerating well, SPO2 98%. Original Note: Day Shift Note- transfer Received pt to room 230 from room 219 at 1230. Pt oriented to room and to call light controls, call light within reach. Pt is primarily Nepali speaking, product mgmt dev manager phone in room for use as needed to explain interventions and answer questions. On HFNC 10L, SpO2 88-89% with activity and 94-95% at rest. Lung sounds coarse bilaterally, reports short of breath with activity. Using IS independently in room. Denies pain. Airborne isolation in place.
--- NOTE | 2020-02-15 13:48 | CM.DANOTE ---
Patient is a 59 year old male who was admitted on 02/14/20 for Cough/SOB/low Oxygen. Pt has [facility] [employer] and [employer] for insurance and his PCP is not listed. EMR was reviewed. Per MD, pt with hx of chronic pain, basil cell carcinoma and typically uses a cane for ambulation due to knee pain. Pt admitted for COVID 19+, pneumonia, Hypoxic Respiratory Failure. Per RN, pt currently on 10LO2 HFNC and utilizing the executive director of marketing phone due to pt being [place] Speaking only. NTL spoke via phone with pt's family member this morning with update. Pt lives in [facility] with his and family members and is typically independent at baseline with ADL's and has multiple family members locally and in [place] that have tested positive for COVID 19 and some have . MD plans to have more thorough discussion with pt regarding his wish not to be intubated if needed. PT ordered but pt not appropriate at this time and PT discharged pt for now until more medically stable. No bedside assessment completed at this time due to COVID 19 precautions and pt's high oxygen needs. Plan: SW to follow closely to determine pt's progress and oxygen needs towards determining d/c planning barriers or needs identified. NAHID Argu[place] Discharge Planning/Care Management Advanced directive, confirm from FAMILY Start: 02/15/20 02:04 Freq: Q24H Status: Active Protocol: Document 02/15/20 02:04 DL (Rec: 02/15/20 04:25 DL [id number]) Advance Directive, confirm on record Time 02:05 Person contacted [place] Copy received No CM Discharge Assessment Start: 02/15/20 13:47 Freq: Status: Active Protocol: Document 02/15/20 13:47 BF (Rec: 02/15/20 13:48 BF [id number]) Discharge Planning Assessment Assigned Esthetics Instructor NAHID Long DPOA/Assigned Designee Name none Advance Directives? No Advance Directives on File No History Provided By Patient,Medical Record Has Patient been admitted in last 30 No days? Prior Living Arrangements House Household Members spouse,children Type of transporation used prior to Relies on Others admit Independent with ADL's Yes Is patient alert and oriented? Yes Caregiver for Another No DME Already Rented / Owned Cane Comment Pending pt's progress and needs with COVID + symptoms Barriers to Discharge No Discharge Plan Home Transportation Arrangement If safe for home, family can likely provide transport at d/ c Additional Comment Pending pt's progress and needs Review Status In Process Please Provide Date Initial DC 02/15/20 Assessment Was Performed Next Review Type Continued Stay Review
--- NOTE | 2020-02-15 14:41 | PC.NURSE ---
Resp: Pt requiring increasing amts of O2, started at 3L NC, RT working w/patient. RT finally had patient to 9L on HFNC to maintain sats at 95-96 on RA and 93% when he was up and going to bathroom prior to transfer. Pt has limited czech but does know enough he can make needs known, such as I want tea, I need to go to the bathroom, ect. Does follow cues and directions. Lungs with course rhonchi and pt has a freq loose cough. Feels sob after being up to the bathroom. Pt did have 1 lg loose bm this am. Tele on, no c/p. Transfered to ICU and report given to Daphne LUQUE.
--- NOTE | 2020-02-15 16:33 | DI.CT.S_ITS ---
PROCEDURE: CT ANGIO CHEST PE PROTOCOL INDICATIONS: worsening hypoxia, covid, + d dimer, r/o PE TECHNIQUE: After the administration of intravenous contrast, 2 mm thick sections acquired from the pulmonary apices to the posterior costophrenic angles. 3-dimensional maximum intensity projection (MIP) coronal and sagittal reformats were then acquired through the thorax. For radiation dose reduction, the following was used: automated exposure control, adjustment of mA and/or kV according to patient size. COMPARISON: [facility], CR, XR CHEST FOR PICC 1V, 02/15/2020, 19:48. FINDINGS: Image quality: Excellent. Pulmonary arteries: Pulmonary arteries are normal in size, and demonstrate no intraluminal filling defects to suggest central pulmonary embolism. Lungs and pleura: There is appearance of prominent patchy and confluent bilateral pulmonary opacities. No effusions. Mediastinum: Heart size is normal, without pericardial effusion. No mediastinal or hilar adenopathy. Thoracic aorta is normal in caliber and enhancement. Esophagus is normal in caliber, without hiatal hernia. Bones and chest wall: No suspicious bony lesions. Ribs and thoracic spine appear intact throughout. Thyroid gland is unremarkable . No axillary or supraclavicular adenopathy. Abdomen: Visualized upper abdominal solid organs appear normal in the early arterial phase of enhancement. IMPRESSION: 1. Prominent bilateral pulmonary opacities most suggestive of pneumonia. 2. No pulmonary embolism. Dictated by: Lore Tolentino M.D. on 02/16/2020 at 8:30 Approved by: Lore Tolentino M.D. on 02/16/2020 at 8:34
[2020-02-15 16:46] LABS: pH ABG 7.44 (7.35-7.45)
[2020-02-15 16:47] LABS: Fractionated Inspired Oxygen 40; HCO3 ABG 24 mmol/L (22-26); Oxygen Saturation ABG 94 % (95-100); PCO2 ABG 35.3 mmHg (35-45); PO2 ABG 67 mmHg (80-100); TCO2 ABG 25 mmol/L (21-31)
[2020-02-15] MEDS: ENOXAPARIN 80 MG/0.8 ML SYRINGE 75 MG SUBCUT (16:58)
[2020-02-15] MEDS: CODEINE/GUAIFENESIN LIQUID 5ML UDC 10 ML PO (16:59)
--- NOTE | 2020-02-15 17:40 | PC.NURSE ---
Addendum entered by Patience Garibay R.N. 02/16/20 02:36: 0220 pt tolerating FFP without any ADR, infusing at a rate of 200mL/hr at this time. Addendum entered by Patience Garibay R.N. 02/16/20 01:43: NOC shift note: Pt currently on 50L/60% Heated high flow NC sats 95-98%, pt proning currently has only proned for approximately 2 hours in the last 10 hours, pt c/o pain to the PICC site with proning. 0120 Started administration of Convalescent COVID-19 FFP, consent for blood administration signed and in the chart, pt tolerating administration without ADR so far. Will continue to monitor closely. Bed low and locked, call light within reach will continue to monitor Addendum entered by Patience Garibay R.N. 02/15/20 19:50: 1950 PICC line placed Original Note: Evening shift note: Pt A/Ox3, primarily zimbabwean speaking, but able to speak enough Romanian to make needs known and ask questions, lead developer phone in room for use as needed to explain interventions and answer complicated questions. at 1500 pt was placed on HHF 40L/50%, Dr. Gregory notified, pt status changed to ICU, PICC line ordered as well as type and cross-match for possible infusion of FFP. Pt currently saturating in the 90's at rest on the HHF, but states that the high oxygen pressure bothers him. Lung sounds coarse bilaterally, pt reports SOB with activity. Is able to use IS in room independently, denies pain, able to collect sputum sample for culture. Airborne precautions for isolation in place, bed low and locked, call light within reach, will continue to monitor.
--- NOTE | 2020-02-15 19:45 | DI.RAD.S_ITS ---
PROCEDURE: XR CHEST FOR PICC 1V INDICATIONS: picc placement COMPARISON: [facility], , XR CHEST 1V, 02/14/2020, 22:19. FINDINGS: PICC was placed by the intravenous therapy team from the right side. Fluoroscopic spot film demonstrates the tip of PICC projecting to the area of SVC. Bilateral patchy infiltrates in lungs consistent with pneumonia. IMPRESSION: Tip of PICC projects to the area of SVC. Dictated by: Mckenna Gasca M.D. on 02/15/2020 at 20:09 Approved by: Mckenna Gasca M.D. on 02/15/2020 at 20:10
[2020-02-16] VITALS (30 sets, daily range): BP systolic 115–163; BP diastolic 74–92; PULSE 61–86; RESP 15–25; TEMP 36.2–37.3; O2SAT 88–98
[2020-02-16] MEDS: CODEINE/GUAIFENESIN LIQUID 5ML UDC 10 ML PO ×2 (00:43→20:35)
[2020-02-16] MEDS: FAMOTIDINE 20 MG/50 ML PIGGYBACK 200 MG IV ×2 (00:44→12:13)
[2020-02-16] MEDS: ACETAMINOPHEN 325 MG TABLET 650 MG PO (01:23)
[2020-02-16] MEDS: TRAMADOL 50 MG TABLET PO ×2 (03:39→20:39)
[2020-02-16] MEDS: ENOXAPARIN 80 MG/0.8 ML SYRINGE 75 MG SUBCUT (03:39)
[2020-02-16 06:31] LABS: Add Manual Diff / Slide Review NO; Basophils Absolute Auto 0 /uL (0-100); Basophils Percent Auto 0.2 % (0-2); Eosinophils Absolute Auto 0 /uL (0-450); Hematocrit 36.4 % (41-53); Hemoglobin 11.9 g/dL (13.5-17.5); Lymphocytes Absolute Auto 1900 /uL (1100-4500); Lymphocytes Percent Auto 13.2 % (25-40); Mean Corpuscular HGB Conc 32.7 % (30-36); Mean Corpuscular Hemoglobin 30.1 PG (26-34); Monocytes Absolute Auto 900 /uL (0-900); Monocytes Percent Auto 6.2 % (3-14); Neutrophils Absolute Auto 11400 /uL (1500-7000); Neutrophils Percent Auto 80.4 % (50-75); Platelet Count 327 X10^3/uL (150-400); Red Blood Cell Count 3.95 X10^6/uL (4.5-5.9); Red Cell Distribution Width 13.2 % (11.6-14.8); White Blood Cell Count 14.2 X10^3/uL (4.5-11.0)
[2020-02-16 06:42] LABS: Alanine Aminotransferase 59 IU/L (<50); Albumin 3.3 g/dL (3.5-5.0); Albumin Globulin Ratio 0.9 (1.0-2.8); Alkaline Phosphatase 84 U/L (38-126); Aspartate Aminotransferase 51 IU/L (17-59); BUN Creatinine Ratio 37.5 (6-22); Bilirubin Total 0.5 mg/dL (0.2-1.3); Bilirubin Unconjugated 0.3 mg/dL (0.0-1.1); Blood Urea Nitrogen 27 mg/dL (9-20); Calcium 8.5 mg/dL (8.4-10.2); Carbon Dioxide 29 mmol/L (22-32); Chloride 106 mmol/L (98-107); Cholesterol 147 mg/dL (140-199); Estimated Glomerular Filt Rate > 60.0 mL/min (>60); Globulin 3.6 g/dL (1.7-4.1); Glucose 171 mg/dL (70-100); HDL Cholesterol 21 mg/dL (40-60); HEMOLYSIS < 15 (0-50); LDL Cholesterol Calculated 80 mg/dL (<100); Magnesium 2.6 mg/dL (1.6-2.3); Potassium 4.3 mmol/L (3.4-5.1); Sodium 136 mmol/L (137-145); Total Protein 6.9 g/dL (6.3-8.2); Triglycerides 231 mg/dL (35-150)
[2020-02-16 07:30] LABS: HCO3 ABG 25 mmol/L (22-26); Oxygen Saturation ABG 99 % (95-100); PCO2 ABG 37.3 mmHg (35-45); PO2 ABG 140 mmHg (80-100); TCO2 ABG 26 mmol/L (21-31); pH ABG 7.43 (7.35-7.45)
[2020-02-16 07:31] LABS: Fractionated Inspired Oxygen 60
[2020-02-16] MEDS: CEFTRIAXONE 1 GM/50 ML FROZ.PIGGY IV (08:12)
[2020-02-16] MEDS: CHOLECALCIFEROL (VITAMIN D3) 1,000 UNIT TABLET 4000 UNIT PO (08:13)
[2020-02-16] MEDS: DEXAMETHASONE 10 MG/ML VIAL 6 MG IV (08:13)
[2020-02-16] MEDS: lisinopriL 10 MG TABLET PO (08:13)
[2020-02-16] MEDS: guaiFENesin ER 600 MG TAB PO ×2 (08:14→20:38)
[2020-02-16] MEDS: INSULIN ASPART 100 UNIT/ML INSULN PEN SUBCUT ×3 (08:27→16:49)
--- NOTE | 2020-02-16 08:29 | PC.NURSE ---
Assumed care of Pt @ 0300. reports pain to throat and pain with coughing. Current heated hiflow settings 50% and 60L, next ABG @ 0600. Coarse and dim lungs. Pt is Primarily Thai speaking, but simple requests in Kiswahili are answered appropriately.Tele in place NSR. Encouraging Pt to prone, though not cooperative at this time. Plan to get to CT @ 0700. Trial of Pt on 5 L to see if Able to go to CT without aerosolizing. [address] Pt tolerating well with 5L in place.
[2020-02-16] MEDS: CALCIUM CARBONATE 500 MG TAB PO ×3 (10:15→20:39)
--- NOTE | 2020-02-16 11:01 | PM.PN.1 ---
Subjective Subjective Date Patient Seen: 02/16/20 Time Patient Seen: 11:01 Interval history: Caleb Hyman is a 59-year-old male with a past medical history of hypertension, hyperlipidemia, and prediabetes who was admitted with COVID-19 pneumonia. Patient yesterday had worsening hypoxia requiring heated high-flow to as much as 60% FiO2 and 50 L, although this has improved somewhat this morning. He did have an elevated D-dimer on admission. unfortunately, the patient needed to be transferred to another unit to allow for work on his prior room to facilitate the addition of another COVID isolation room. Given his respiratory status I did want to perform a CT angiogram but wanted to limit the number of transfers that he would undergo. Overnight the patient was treated with Lovenox for a possible PE given the delay and CT angiogram. Fortunately, his CT angiogram was negative and his Lovenox was discontinued this morning. He remains in the separate unit and the plan is to transfer him back up once the work on his room is completed. He did receive convalescent plasma early this morning after it was ordered yesterday given his worsening trajectory. he did complain of an episode of chest pain lasted for about 5 minutes that was worse with inspiration, EKG did not show any specific signs of ischemia, however there were some flipped P-waves compared to his admission EKG. A troponin is currently pending. Exam Vital Signs (past 8 hours): - 02/16/20 03:53 02/16/20 04:00 02/16/20 04:24 Temperature 97.9 F Pulse Rate 65 64 67 Respiratory Rate 22 15 Blood Pressure 148/92 H 138/75 138/75 Pulse Oximetry 94 94 02/16/20 04:30 02/16/20 05:00 02/16/20 06:00 Temperature Pulse Rate 71 64 61 Respiratory Rate Blood Pressure 159/74 H 132/75 Pulse Oximetry 97 94 97 02/16/20 08:00 02/16/20 09:00 02/16/20 10:43 Temperature 97.6 F Pulse Rate 71 70 82 Respiratory Rate 25 H 22 22 Blood Pressure 125/74 117/76 Pulse Oximetry 93 91 96 Fraction of Inspired Oxygen 40 Oxygen Delivery Method Heated High Flow Oxygen Flow Rate 40 Narrative Exam Narrative: GENERAL APPEARANCE: well developed, well nourished, proning on hospital bed conversant. mildly diaphoretic, appears fatigued. HEENT: Normocephalic, PERRLA, conjunctiva clear, sclera is anicteric, EOMs intact without nystagmus, no sinus tenderness to percussion, no rhinorrhea, mucous membranes are moist and pink without lesions or exudate. NECK/THYROID: neck supple, no JVD, no carotid bruit, no thyromegaly, trachea midline. LYMPH NODES: no cervical or supraclavicular lymphadenopathy. SKIN: [place], warm and dry, no visible lesions or rashes HEART: regular rate and rhythm, no murmur, no rubs or gallops, brisk capillary refill, no edema LUNGS: clear to auscultation bilaterally,mild crackles L lower lobe laterally, cough present CHEST: Symmetrical movement, no accessory muscle use, good tidal volume. ABDOMEN: Soft, no distention, no abdominal tenderness, no guarding or peritoneal signs, no organomegaly, no flank or suprapubic tenderness, active bowel tones. BACK: Normal curvature, nontender to palpation EXTREMITIES: Nontender, no joint effusions. NEUROLOGIC: AAO x4, no focal neurologic deficits, cranial nerves II-XII grossly intact, sensation intact to light touch, hearing grossly normal to speech. PSYCH: Briskly interactive, cooperative, appropriate with stable behavior Objective Labs Result Diagrams: 02/16/20 06:05 02/16/20 06:05 Labs: Laboratory Results - last 24 hr 02/15/20 02/15/20 02/15/20 09:50 16:35 20:21 WBC RBC Hgb Hct MCV MCH MCHC RDW Plt Count Neut % (Auto) Lymph % (Auto) [place] % (Auto) Eos % (Auto) Baso % (Auto) Neut # (Auto) Lymph # (Auto) [place] # (Auto) Eos # (Auto) Baso # (Auto) ABG pH 7.44 ABG pCO2 35.3 ABG pO2 67 L ABG HCO3 24 ABG Total CO2 25 ABG O2 Saturation 94 L ABG Base Excess 0.0 FiO2 40 Sodium Potassium Chloride Carbon Dioxide BUN Creatinine Estimated GFR BUN/Creatinine Ratio Glucose Calcium Magnesium Total Bilirubin Conjugated Bilirubin Unconjugated Bilirubin AST ALT Alkaline Phosphatase Total Protein Albumin Globulin Albumin/Globulin Ratio Triglycerides Cholesterol LDL Cholesterol, Calc HDL Cholesterol Chlamy pneumoniae PCR Not detected Adenovirus (PCR) Not detected B.parapertussis DNA PCR Not detected Coronavirus OC43 (PCR) Not detected Coronavirus HKU1 (PCR) Not detected Coronavirus 229E (PCR) Not detected COVID-19 PCR Detected Coronavirus NL63 (PCR) Not detected Human Metapneumovir PCR Not detected Influenza Type A (PCR) Not detected Influenza Type B (PCR) Not detected M. pneumoniae (PCR) Not detected Parainfluenza 1 (PCR) Not detected Parainfluenza 2 (PCR) Not detected Parainfluenza 3 (PCR) Not detected Parainfluenza 4 (PCR) Not detected RSV (PCR) Not detected Entero/Rhino (PCR) Not detected Blood Type A Positive 02/16/20 02/16/20 02/16/20 06:05 06:05 06:15 WBC 14.2 H RBC 3.95 L Hgb 11.9 L Hct 36.4 L MCV 92.0 MCH 30.1 MCHC 32.7 RDW 13.2 Plt Count 327 Neut % (Auto) 80.4 H Lymph % (Auto) 13.2 L [place] % (Auto) 6.2 Eos % (Auto) 0.0 L Baso % (Auto) 0.2 Neut # (Auto) 64510 H Lymph # (Auto) 1900 [place] # (Auto) 900 Eos # (Auto) 0 Baso # (Auto) 0 ABG pH 7.43 ABG pCO2 37.3 ABG pO2 140 H ABG HCO3 25 ABG Total CO2 26 ABG O2 Saturation 99 ABG Base Excess 0.0 FiO2 60 Sodium 136 L Potassium 4.3 Chloride 106 Carbon Dioxide 29 BUN 27 H Creatinine 0.72 Estimated GFR > 60.0 BUN/Creatinine Ratio 37.5 H Glucose 171 H Calcium 8.5 Magnesium 2.6 H Total Bilirubin 0.5 Conjugated Bilirubin 0.0 Unconjugated Bilirubin 0.3 AST 51 ALT 59 H Alkaline Phosphatase 84 Total Protein 6.9 Albumin 3.3 L Globulin 3.6 Albumin/Globulin Ratio 0.9 L Triglycerides 231 H Cholesterol 147 LDL Cholesterol, Calc 80 HDL Cholesterol 21 L Chlamy pneumoniae PCR Adenovirus (PCR) B.parapertussis DNA PCR Coronavirus OC43 (PCR) Coronavirus HKU1 (PCR) Coronavirus 229E (PCR) COVID-19 PCR Coronavirus NL63 (PCR) Human Metapneumovir PCR Influenza Type A (PCR) Influenza Type B (PCR) M. pneumoniae (PCR) Parainfluenza 1 (PCR) Parainfluenza 2 (PCR) Parainfluenza 3 (PCR) Parainfluenza 4 (PCR) RSV (PCR) Entero/Rhino (PCR) Blood Type [facility] Medical History Basal cell carcinoma Chronic pain syndrome Hyperlipidemia Hypertension Prediabetes Surgical History History of appendectomy History of hernia repair History of knee surgery Family History Father Diabetes mellitus Mother COPD (chronic obstructive pulmonary disease) Social History household members: spouse and children Smoking Status: Never smoker alcohol intake: current Assessment & Plan Assessment & Plan narrative: This is a 59-year-old male patient with a past medical history significant for hypertension, prediabetes hyperlipidemia chronic pain syndrome who presents to the ER with progressive COVID-19 symptoms. He is admitted for acute hypoxic respiratory failure secondary to COVID-19 pneumonia with possible superimposed bacterial pneumonia. 1. Acute respiratory failure with hypoxia, present on admission, active -on presentation the patient's respiratory rate of 31 with an SpO2 of 83 on room air. ABG reveals a pH of 7.5, pCO2 of 29.8, PaO2 of 55, bicarb of 23 with a base excess of 0 on 32% FiO2. -patient started on supplemental oxygen with nasal cannula 5 liters/minute, has now advanced to heated high flow as high as 60% FiO2 at 50L, currently improved to 40% FiO2 at 30L and saturating in the mid 90s. Blood gas on his max settins showed pO2 of 140. Will continue to wean as tolerated for targets noted below. -per pulmonology recommendations will target goal SpO2 greater than 88%, PaO2 greater than 55% and respiratory rate less than 30 at rest. -will treat underlying COVID-19 pneumonia as below. Possible superimposed bacterial pneumonia given leukocytosis with left shift not typical for COVID 19 alone. Have started antibiotics with ceftriaxone and azithromycin. -appreciate respiratory therapy assistance with management. -patient will remain on continuous pulse oximetry and cardiac telemetry. -CTA negative for PE as noted below. 2. Acute COVID-19 pneumonia with possible superimposed bacterial pnemonia, present on admission, active. -patient has previously tested positive for COVID-19 and again tests positive on admission. Full respiratory panel only positive for COVID-19. -patient has elevated inflammatory markers including an elevated D-dimer at 751, CRP elevated at 16.7, LDH of 981 ferritin is 1330 elevated total CK of 181 with a low MB fraction at 0.51 an index of 0.3. Troponin is negative slight elevation of proBNP of 414. Procalcitonin is-0.13. -chest x-ray finds diffuse bilateral infiltrates. Given leukocytosis started on ceftriaxone x5 days and azithomycin x3 days for possible superimposed bacterial pneumonia. CT angiogram negative for PE but shows multiple lobar pneumonia consistent with COVID-19. -continue proning at 8 hour intervals as much as possible and continue supportive care. -continue dexamethasone x10 days or until discharge, whichever is soonest. Continue remdesevir x5 days, to a max of 10 if remains admitted. -given 1 U convalescent plasma on early AM of 02/15. -ordered albuterol inhaler 2 puffs every 4 hours as needed for wheezing only. -ordered melatonin 6 mg at bedtime for both sleep promotion. -started on famotidine for reflux symptoms, as well as a possible therapeutic effect in COVID. 3. Pre diabetes with hyperglycemia, chronic, stable. -patient is not on glucose lowering medication and has an admission serum glucose of 169. -the patient will be receiving Decadron with expected elevation in serum glucose levels. -ordered fingerstick blood sugars a.c. and hs and coverage with low-dose correctional insulin. -will trend blood sugars to maintain glycemic control. -A1c is 6.4% consistent with pre-diabetes. 4. Hypertension, chronic, stable. -will continue home regimen of lisinopril 10 mg daily in accordance with current recommendations to continue Daryl inhibitor in patient's on the medication with COVID-19 pneumonia. 5. Hyperlipidemia, chronic, stable. -the patient states not currently taking medication for cholesterol. Per the medical record from [facility] this atorvastatin 20 mg daily. -will obtain a lipid panel. 6. sepsis ruled out - SOFA score is 2, but only secondary to acute respiratory failure. No other dysregulated response. 7. Chest pain, not present on admission, now resolved - will check troponin, CTA negative for PE, likely related to reflux or muskuloskeletal pain from chronic cough and proning. pain resolved after 5 minutes. He is on famotidine as noted above. VTE prophylaxis: Heparin IV fluid: Saline lock Diet: Small Consistent carbohydrate Code status: Full code, the patient wishes CPR but states DO NOT INTUBATE. Did discuss that normally CPR results in intubation but he does not wish to be intubated in the setting of only respiratory failure due to COVID as the patient has 2 family members in [place] or intubated and from COVID-19. He designates his to as is surrogate decision maker. Quality VTE Deep Vein Thrombosis/Pulmonary Embolism Present on Admission: No
--- NOTE | 2020-02-16 11:32 | PC.NURSE ---
Addendum entered by Eder Nava R.N. 02/16/20 15:08: Pt transferred back up to room 230 in bed on NRB with RT and RN. Pt tolerated transfer well and was placed back on HHFNC, settings per RT. was notified earlier regarding room change. All belongings are with pt. Original Note: 1000- Pt placed call light on. C/o chest pain very bad to left chest wall. He states he has never felt a pain like this before. He states that the pain is a little worse with on inspiration. Assessed VSS. SR on bedside monitor without any discernable changes from previous reads. Placed order for EKG per protocol and notified hospitalist of pt reports of CP. EKG shows a junctional rhythm with a rate of 73. CP spontaneously resolved without intervention after about 10 minutes. Pt requests tums for indigestion. Assisted to prone position about 1015. SPO2 increased to 97% on 40% Fio2 50L. Call light in easy reach, phone in reach, bed locked/low.
[2020-02-16 11:39] LABS: Troponin I < 0.012 ng/mL (0.01-0.034)
[2020-02-16] MEDS: AZITHROMYCIN 500 MG in DEXTROSE 5% IN WATER 250 ML IV (12:12)
[2020-02-16] MEDS: VANCOMYCIN 1,000 MG/200 ML PIGGYBACK 200 MG IV (16:48)
[2020-02-16] MEDS: VANCOMYCIN PER PHARMACY 1 REQUEST MISC (16:57)
--- NOTE | 2020-02-16 18:16 | PC.NURSE ---
Pt resting comfortably in room 230 - remains on heated hiflo 45% 30L. When proned O2 sats 95-96%, when supine or high fowlers 90-91%. Encouraged to prone as much as possible when not eating or using the urinal. Pt agreeable with that plan. Denies pain except occasional heartburn. Medicated with Tums with good relief. Monitor shows NSR rate 70, VSS. Will continue to monitor.
[2020-02-16 23:35] LABS: HCO3 ABG 24 mmol/L (22-26); Oxygen Saturation ABG 95 % (95-100); PO2 ABG 72 mmHg (80-100); TCO2 ABG 25 mmol/L (21-31); pH ABG 7.41 (7.35-7.45)
[2020-02-16 23:36] LABS: Fractionated Inspired Oxygen 50
[2020-02-17] VITALS (19 sets, daily range): BP systolic 106–128; BP diastolic 62–80; PULSE 67–85; RESP 17–54; TEMP 36.3–37; O2SAT 86–96
[2020-02-17] MEDS: REMDESIVIR 100 MG in SODIUM CHLORIDE 0.9% 230 ML 250 ML IV ×2 (00:23→22:15)
[2020-02-17] MEDS: FAMOTIDINE 20 MG/50 ML PIGGYBACK 200 MG IV ×3 (00:24→23:30)
[2020-02-17] MEDS: CALCIUM CARBONATE 500 MG TAB PO ×7 (00:56→23:30)
[2020-02-17] MEDS: VANCOMYCIN 1,000 MG/200 ML PIGGYBACK 200 MG IV ×2 (00:56→08:48)
[2020-02-17] MEDS: ONDANSETRON 4 MG/2 ML INJ IV (00:56)
[2020-02-17] MEDS: ACETAMINOPHEN 325 MG TABLET 650 MG PO (04:58)
[2020-02-17 05:53] LABS: PCO2 ABG 38.9 mmHg (35-45); pH ABG 7.41 (7.35-7.45)
[2020-02-17 05:53] LABS: Add Manual Diff / Slide Review NO; Basophils Absolute Auto 0 /uL (0-100); Basophils Percent Auto 0.3 % (0-2); Eosinophils Absolute Auto 0 /uL (0-450); Eosinophils Percent Auto 0.1 % (2-4); Hematocrit 38.8 % (41-53); Hemoglobin 12.8 g/dL (13.5-17.5); Lymphocytes Absolute Auto 3000 /uL (1100-4500); Lymphocytes Percent Auto 21.5 % (25-40); Mean Corpuscular HGB Conc 33.2 % (30-36); Mean Corpuscular Hemoglobin 30.3 PG (26-34); Mean Corpuscular Volume 91.3 fL (80-100); Monocytes Absolute Auto 1100 /uL (0-900); Monocytes Percent Auto 7.7 % (3-14); Neutrophils Absolute Auto 9800 /uL (1500-7000); Neutrophils Percent Auto 70.4 % (50-75); Platelet Count 266 X10^3/uL (150-400); Red Blood Cell Count 4.24 X10^6/uL (4.5-5.9); Red Cell Distribution Width 13.3 % (11.6-14.8); White Blood Cell Count 13.9 X10^3/uL (4.5-11.0)
[2020-02-17 05:54] LABS: Fractionated Inspired Oxygen 50; HCO3 ABG 25 mmol/L (22-26); Oxygen Saturation ABG 90 % (95-100); TCO2 ABG 26 mmol/L (21-31)
[2020-02-17 05:55] LABS: PO2 ABG 57 mmHg (80-100)
[2020-02-17 06:05] LABS: Alanine Aminotransferase 92 IU/L (<50); Albumin 3.5 g/dL (3.5-5.0); Albumin Globulin Ratio 0.9 (1.0-2.8); Alkaline Phosphatase 101 U/L (38-126); Aspartate Aminotransferase 83 IU/L (17-59); BUN Creatinine Ratio 25.6 (6-22); Bilirubin Total 0.7 mg/dL (0.2-1.3); Bilirubin Unconjugated 0.5 mg/dL (0.0-1.1); Blood Urea Nitrogen 22 mg/dL (9-20); Calcium 8.9 mg/dL (8.4-10.2); Carbon Dioxide 29 mmol/L (22-32); Chloride 104 mmol/L (98-107); Estimated Glomerular Filt Rate > 60.0 mL/min (>60); Globulin 3.7 g/dL (1.7-4.1); Glucose 102 mg/dL (70-100); HEMOLYSIS < 15 (0-50); Magnesium 2.4 mg/dL (1.6-2.3); Potassium 4.6 mmol/L (3.4-5.1); Sodium 137 mmol/L (137-145); Total Protein 7.2 g/dL (6.3-8.2)
[2020-02-17] MEDS: BENZOCAINE/MENTHOL 1 LOZ PKT 1 EACH PO ×4 (06:40→23:30)
--- NOTE | 2020-02-17 07:24 | PC.NURSE ---
Stone Setter Note-Patient has been on .50 FIO2/50L HHFNC overnight with SpO2 .92% until am at 0530, he desatted to 86% while sitting up in bed, RT increased FIO2 to .60%, am ABG pO2=57. Patient has been proning or sleeping on each side. Medicated with IV Zofran for nausea, Tylenol for headache, Tums and Cepacol longes for heartburn and sore throat.
[2020-02-17] MEDS: CEFTRIAXONE 1 GM/50 ML FROZ.PIGGY IV (08:47)
[2020-02-17] MEDS: ENOXAPARIN 40 MG/0.4 ML SYRINGE SUBCUT (08:47)
[2020-02-17] MEDS: DEXAMETHASONE 10 MG/ML VIAL 6 MG IV (08:48)
[2020-02-17] MEDS: CHOLECALCIFEROL (VITAMIN D3) 1,000 UNIT TABLET 4000 UNIT PO (08:49)
[2020-02-17] MEDS: lisinopriL 10 MG TABLET PO (08:51)
[2020-02-17] MEDS: guaiFENesin ER 600 MG TAB PO ×2 (08:51→21:12)
[2020-02-17] MEDS: INSULIN ASPART 100 UNIT/ML INSULN PEN SUBCUT ×3 (08:51→16:46)
[2020-02-17] MEDS: TRAMADOL 50 MG TABLET PO (09:24)
[2020-02-17] MEDS: AZITHROMYCIN 500 MG in DEXTROSE 5% IN WATER 250 ML IV (12:55)
--- NOTE | 2020-02-17 14:57 | P.PN_ITS ---
Subjective Subjective Date Patient Seen: 02/17/20 Time Patient Seen: 14:57 Interval history: Caleb Hyman is a 59-year-old male with a past medical history of hypertension, hyperlipidemia, and prediabetes who was admitted with COVID-19 pneumonia. Patient requiring heated high-flow to as much as 60% FiO2 and 50 L, he has waxed and waned around these settings over the past day. He feels a bit stronger today, but continues to have productive cough. He has a difficult time proning with chest discomfort, will add oxycodone. Sputum cultures returned with MSSA and strep, vancomycin discontinued and will remain on ceftriaxone. Leukocytosis is improving. Exam Vital Signs (past 8 hours): - 02/17/20 08:00 02/17/20 10:00 02/17/20 12:00 Temperature 97.3 F L 98.6 F Pulse Rate 77 80 83 Respiratory Rate 17 30 H 28 H Blood Pressure 112/70 127/76 Pulse Oximetry 95 96 95 02/17/20 13:44 Temperature Pulse Rate Respiratory Rate Blood Pressure Pulse Oximetry 96 Fraction of Inspired Oxygen 60 Oxygen Delivery Method Heated High Flow Oxygen Flow Rate 50 Narrative Exam Narrative: GENERAL APPEARANCE: well developed, well nourished, proning on hospital bed conversant. appears fatigued. HEENT: Normocephalic, PERRLA, conjunctiva clear, sclera is anicteric, EOMs intact without nystagmus, no sinus tenderness to percussion, no rhinorrhea, mucous membranes are moist and pink without lesions or exudate. NECK/THYROID: neck supple, no JVD, no carotid bruit, no thyromegaly, trachea midline. LYMPH NODES: no cervical or supraclavicular lymphadenopathy. SKIN: [place], warm and dry, no visible lesions or rashes HEART: regular rate and rhythm, no murmur, no rubs or gallops, brisk capillary refill, no edema LUNGS: clear to auscultation bilaterally cough present CHEST: Symmetrical movement, no accessory muscle use, good tidal volume. ABDOMEN: Soft, no distention, no abdominal tenderness, no guarding or peritoneal signs, no organomegaly, no flank or suprapubic tenderness, active bowel tones. BACK: Normal curvature, nontender to palpation EXTREMITIES: Nontender, no joint effusions. NEUROLOGIC: AAO x4, no focal neurologic deficits, cranial nerves II-XII grossly intact, sensation intact to light touch, hearing grossly normal to speech. PSYCH: Briskly interactive, cooperative, appropriate with stable behavior Objective Labs Result Diagrams: 02/17/20 05:40 02/17/20 05:40 Labs: Laboratory Results - last 24 hr 02/16/20 02/17/20 02/17/20 21:10 04:55 05:40 WBC 13.9 H RBC 4.24 L Hgb 12.8 L Hct 38.8 L MCV 91.3 MCH 30.3 MCHC 33.2 RDW 13.3 Plt Count 266 Neut % (Auto) 70.4 Lymph % (Auto) 21.5 L [place] % (Auto) 7.7 Eos % (Auto) 0.1 L Baso % (Auto) 0.3 Neut # (Auto) 9800 H Lymph # (Auto) 3000 [place] # (Auto) 1100 H Eos # (Auto) 0 Baso # (Auto) 0 ABG pH 7.41 7.41 ABG pCO2 37.0 38.9 ABG pO2 72 L 57 L ABG HCO3 24 25 ABG Total CO2 25 26 ABG O2 Saturation 95 90 L ABG Base Excess -1.0 0.0 FiO2 50 50 Sodium Potassium Chloride Carbon Dioxide BUN Creatinine Estimated GFR BUN/Creatinine Ratio Glucose Calcium Magnesium Total Bilirubin Conjugated Bilirubin Unconjugated Bilirubin AST ALT Alkaline Phosphatase Total Protein Albumin Globulin Albumin/Globulin Ratio 02/17/20 05:40 WBC RBC Hgb Hct MCV MCH MCHC RDW Plt Count Neut % (Auto) Lymph % (Auto) [place] % (Auto) Eos % (Auto) Baso % (Auto) Neut # (Auto) Lymph # (Auto) [place] # (Auto) Eos # (Auto) Baso # (Auto) ABG pH ABG pCO2 ABG pO2 ABG HCO3 ABG Total CO2 ABG O2 Saturation ABG Base Excess FiO2 Sodium 137 Potassium 4.6 Chloride 104 Carbon Dioxide 29 BUN 22 H Creatinine 0.86 Estimated GFR > 60.0 BUN/Creatinine Ratio 25.6 H Glucose 102 H Calcium 8.9 Magnesium 2.4 H Total Bilirubin 0.7 Conjugated Bilirubin 0.0 Unconjugated Bilirubin 0.5 AST 83 H ALT 92 H Alkaline Phosphatase 101 Total Protein 7.2 Albumin 3.5 Globulin 3.7 Albumin/Globulin Ratio 0.9 L [facility] Medical History Basal cell carcinoma Chronic pain syndrome Hyperlipidemia Hypertension Prediabetes Surgical History History of appendectomy History of hernia repair History of knee surgery Family History Father Diabetes mellitus Mother COPD (chronic obstructive pulmonary disease) Social History household members: spouse and children Smoking Status: Never smoker alcohol intake: current Assessment & Plan Assessment & Plan narrative: This is a 59-year-old male patient with a past medical history significant for hypertension, prediabetes hyperlipidemia chronic pain syndrome who presents to the ER with progressive COVID-19 symptoms. He is admitted for acute hypoxic respiratory failure secondary to COVID-19 pneumonia with superimposed bacterial pneumonia. 1. Acute respiratory failure with hypoxia, present on admission, active -on presentation the patient's respiratory rate of 31 with an SpO2 of 83 on room air. ABG reveals a pH of 7.5, pCO2 of 29.8, PaO2 of 55, bicarb of 23 with a base excess of 0 on 32% FiO2. -patient started on supplemental oxygen with nasal cannula 5 liters/minute, has now advanced to heated high flow as high as 60% FiO2 at 50L, has remained stable around these setting / slightly improved at times over the past 24-36 hours. Blood gas on his max settins showed pO2 of 140. Will continue to wean as tolerated for targets noted below. -per pulmonology recommendations will target goal SpO2 greater than 88%, PaO2 greater than 55% and respiratory rate less than 30 at rest. -will treat underlying COVID-19 pneumonia as below. For superimposed bacterial pneumonia started antibiotics with ceftriaxone and azithromycin. Added vancomycin for a few doses once cultures growing staph, however stopped once MSSA. Azithromycin given x3 doses. Continue cefriaxone x5 days for superimposed pneumonia. -appreciate respiratory therapy assistance with management. -patient will remain on continuous pulse oximetry. Can discontinue telemetry given no events noted thus far. -CTA negative for PE as noted below. 2. Acute COVID-19 pneumonia with superimposed bacterial pnemonia secondary to MSSA and Group G strep, present on admission, active. -patient has previously tested positive for COVID-19 and again tests positive on admission. Full respiratory panel only positive for COVID-19. -patient has elevated inflammatory markers including an elevated D-dimer at 751, CRP elevated at 16.7, LDH of 981 ferritin is 1330 elevated total CK of 181 with a low MB fraction at 0.51 an index of 0.3. Troponin is negative slight elevation of proBNP of 414. Procalcitonin is-0.13. -chest x-ray finds diffuse bilateral infiltrates. Given leukocytosis started on ceftriaxone x5 days and azithomycin x3 days for possible superimposed bacterial pneumonia. CT angiogram negative for PE but shows multiple lobar pneumonia cons istent with COVID-19. Sputum cultures with MSSA and group G strep. -continue proning at 8 hour intervals as much as possible and continue supportive care. -continue dexamethasone x10 days or until discharge, whichever is soonest. Continue remdesevir x5 days, to a max of 10 if remains admitted. -given 1 U convalescent plasma on early AM of 02/15. -ordered albuterol inhaler 2 puffs every 4 hours as needed for wheezing only. -ordered melatonin 6 mg at bedtime for both sleep promotion. -started on famotidine for reflux symptoms, as well as a possible therapeutic effect in COVID. 3. Pre diabetes with hyperglycemia, chronic, stable. -patient is not on glucose lowering medication and has an admission serum glucose of 169. -the patient will be receiving Decadron with expected elevation in serum glucose levels. -ordered fingerstick blood sugars a.c. and hs and coverage with low-dose correctional insulin. -will trend blood sugars to maintain glycemic control. -A1c is 6.4% consistent with pre-diabetes. 4. Hypertension, chronic, stable. -will continue home regimen of lisinopril 10 mg daily in accordance with current recommendations to continue Daryl inhibitor in patient's on the medication with COVID-19 pneumonia. 5. Hyperlipidemia, chronic, stable. -the patient states not currently taking medication for cholesterol. Per the medical record from [facility] this atorvastatin 20 mg daily. -will obtain a lipid panel. 6. sepsis ruled out - SOFA score is 2, but only secondary to acute respiratory failure. No other dysregulated response. 7. Chest pain, not present on admission, now resolved - negative troponin, CTA negative for PE, likely related to reflux or muskuloskeletal pain from chronic cough and proning. pain resolved after 5 minutes. He is on famotidine as noted above. Will add oxycodone to assist with ability to prone. VTE prophylaxis: Heparin IV fluid: Saline lock Diet: Small Consistent carbohydrate Code status: Full code, the patient wishes CPR but states DO NOT INTUBATE. Did discuss that normally CPR results in intubation but he does not wish to be intubated in the setting of only respiratory failure due to COVID as the patient has 2 family members in [place] or intubated and from COVID-19. He designates his to as is surrogate decision maker. COVID-19 COVID-19 status: Positive Quality VTE Deep Vein Thrombosis/Pulmonary Embolism Present on Admission: No
--- NOTE | 2020-02-17 15:07 | PC.NURSE ---
I feel like my breathing is better. Pt in good spirits today. VSS. More aeration to bilateral lung traore. Proned for 2 hours between breakfast and lunch. SPO2 on 60% FIO2 50L HHFNC have ranged 92-97% today. Medicated once for neck pain this AM and after pt was able to sleep. Hospitalist rounded. Reviewed assessment findings, labs/micro, plan of care. Pt made acute care status with cont. pulse oximetry. Pt was very happy to have less wires and is noted to be proning independently without cues.
[2020-02-17] MEDS: CODEINE/GUAIFENESIN LIQUID 5ML UDC 10 ML PO (21:13)
[2020-02-17] MEDS: OXYCODONE IR 5 MG TABLET PO (21:13)
--- NOTE | 2020-02-17 22:33 | PC.NURSE ---
Pt states he feels much better today, not feeling short of breath and able to tolerate activity. Showered without desatting <92%. PICC line flushed with heparin. O2 now 55% 50L, proning when not eating or engaged with therapy.
[2020-02-18] VITALS (34 sets, daily range): BP systolic 102–130; BP diastolic 64–87; PULSE 66–94; RESP 20–26; TEMP 36.6–37.6; O2SAT 90–97
[2020-02-18] MEDS: OXYCODONE IR 5 MG TABLET PO ×3 (04:40→20:53)
[2020-02-18] MEDS: BENZOCAINE/MENTHOL 1 LOZ PKT 1 EACH PO ×2 (04:40→09:14)
[2020-02-18 05:07] LABS: Add Manual Diff / Slide Review NO; Basophils Absolute Auto 0 /uL (0-100); Basophils Percent Auto 0.1 % (0-2); Eosinophils Absolute Auto 100 /uL (0-450); Eosinophils Percent Auto 1.2 % (2-4); Hematocrit 39.5 % (41-53); Hemoglobin 13.2 g/dL (13.5-17.5); Lymphocytes Absolute Auto 2700 /uL (1100-4500); Mean Corpuscular HGB Conc 33.5 % (30-36); Mean Corpuscular Hemoglobin 30.4 PG (26-34); Mean Corpuscular Volume 90.8 fL (80-100); Monocytes Absolute Auto 900 /uL (0-900); Monocytes Percent Auto 7.6 % (3-14); Neutrophils Absolute Auto 7700 /uL (1500-7000); Neutrophils Percent Auto 67.1 % (50-75); Platelet Count 236 X10^3/uL (150-400); Red Blood Cell Count 4.35 X10^6/uL (4.5-5.9); White Blood Cell Count 11.4 X10^3/uL (4.5-11.0)
[2020-02-18 05:16] LABS: Alanine Aminotransferase 118 IU/L (<50); Albumin 3.5 g/dL (3.5-5.0); Alkaline Phosphatase 101 U/L (38-126); Aspartate Aminotransferase 68 IU/L (17-59); Bilirubin Total 0.7 mg/dL (0.2-1.3); Bilirubin Unconjugated 0.6 mg/dL (0.0-1.1); Blood Urea Nitrogen 18 mg/dL (9-20); Calcium 8.9 mg/dL (8.4-10.2); Carbon Dioxide 31 mmol/L (22-32); Chloride 102 mmol/L (98-107); Estimated Glomerular Filt Rate > 60.0 mL/min (>60); Globulin 3.6 g/dL (1.7-4.1); Glucose 107 mg/dL (70-100); HEMOLYSIS 15 (0-50); Magnesium 2.4 mg/dL (1.6-2.3); Potassium 4.5 mmol/L (3.4-5.1); Sodium 138 mmol/L (137-145); Total Protein 7.1 g/dL (6.3-8.2)
--- NOTE | 2020-02-18 06:58 | DI.US.S_ITS ---
PROCEDURE: US PERIPH VENOUS UP EXTREM RT INDICATIONS: EDEMA, PAIN ABOVE CENTRAL LINE TECHNIQUE: Real-time imaging, as well as color and pulse Doppler interrogation, was performed of the right upper extremity deep veins from the inferior neck to the antecubital fossa. COMPARISON: None. FINDINGS: There are occlusive filling defects in the brachial vein, axillary vein and subclavian vein consistent with thrombosis. IMPRESSION: Occlusive DVT involving the right brachial vein, axillary vein and subclavian vein. The result was discussed with Dr. Gregory. Dictated by: Mckenna Gasca M.D. on 02/18/2020 at 8:15 Approved by: Mckenna Gasca M.D. on 02/18/2020 at 8:27
[2020-02-18] MEDS: TRAMADOL 50 MG TABLET PO (07:03)
--- NOTE | 2020-02-18 07:19 | PC.NURSE ---
Speech Teacher Note-Patient slept from [id number] either prone or turned to left side, FIO2 .55%/50L flow, SpO2 >92%, RR 20 or <, continues to c/o sore throat and heartburn, Tums and lozenges given. At 0745, patient used call light to report pain in Rt forearm radiating up arm to scalp, medial forearm assessed to be slightly hardened. changed Picc drsg and caps, flushes well with saline and heparin, but does not have blood return. Notified Eddi HUDDLESTON, venous ultrasound ordered, Tramadol given.
[2020-02-18 09:03] LABS: HCO3 ABG 27 mmol/L (22-26); Oxygen Saturation ABG 97 % (95-100); PCO2 ABG 40.9 mmHg (35-45); PO2 ABG 85 mmHg (80-100); TCO2 ABG 28 mmol/L (21-31); pH ABG 7.42 (7.35-7.45)
[2020-02-18 09:04] LABS: Fractionated Inspired Oxygen 55
[2020-02-18] MEDS: CHOLECALCIFEROL (VITAMIN D3) 1,000 UNIT TABLET 4000 UNIT PO (09:13)
[2020-02-18] MEDS: CEFTRIAXONE 1 GM/50 ML FROZ.PIGGY IV (09:13)
[2020-02-18] MEDS: ENOXAPARIN 80 MG/0.8 ML SYRINGE 75 MG SUBCUT ×2 (09:14→20:52)
[2020-02-18] MEDS: CALCIUM CARBONATE 500 MG TAB PO ×2 (09:14→20:53)
[2020-02-18] MEDS: guaiFENesin ER 600 MG TAB PO ×2 (09:14→20:53)
[2020-02-18] MEDS: lisinopriL 10 MG TABLET PO (09:14)
[2020-02-18] MEDS: ACETAMINOPHEN 325 MG TABLET 650 MG PO ×2 (09:14→20:53)
[2020-02-18] MEDS: DEXAMETHASONE 10 MG/ML VIAL 6 MG IV (09:15)
--- NOTE | 2020-02-18 10:43 | PC.NURSE ---
0900- Discussed US results with Dr. Gregory. Dr. Gregory states ok to use PICC line as long as it is infusing without issues. Orders received for therapeutic lovenox. ABG results were discussed and RT titrated O2 down to 43% FIo2 and 50L. SPO2 ranging 93-97%. Reports right arm pain improved after tramadol. Tylenol given for mild headache. Pt is noted to be self proning after breakfast with SPO2 97%.
[2020-02-18] MEDS: FAMOTIDINE 20 MG/50 ML PIGGYBACK 200 MG IV (11:57)
[2020-02-18] MEDS: INSULIN ASPART 100 UNIT/ML INSULN PEN SUBCUT ×2 (12:23→17:13)
--- NOTE | 2020-02-18 14:50 | P.PN_ITS ---
Subjective Subjective Date Patient Seen: 02/18/20 Time Patient Seen: 14:50 Interval history: Caleb Hyman is a 59-year-old male with a past medical history of hypertension, hyperlipidemia, and prediabetes who was admitted with COVID-19 pneumonia. Patient requiring heated high-flow to as much as 60% FiO2 and 50 L, he has waxed and waned around these settings but is seemingly starting to improve. He is now on 35% FiO2 and 50L. Overnight he complained of pain in his R arm, unfortunately has a DVT associated with his PICC line. PICC is still functional and can remain in place. Patient started on therapeutic lovenox after study. His pain has improved, and he has no numbness or weakness on that arm. He denies diarrhea, abdominal pain, nausea, vomiting. He is eating well. Exam Vital Signs (past 8 hours): - 02/18/20 08:00 02/18/20 09:04 02/18/20 11:11 Temperature 99.5 F Pulse Rate 74 75 Respiratory Rate 22 20 20 Blood Pressure 125/73 Pulse Oximetry 93 93 96 02/18/20 12:00 02/18/20 13:15 Temperature 98.5 F Pulse Rate 75 74 Respiratory Rate 26 H 20 Blood Pressure 112/75 Pulse Oximetry 94 93 Fraction of Inspired Oxygen 35 Oxygen Delivery Method Heated High Flow Oxygen Flow Rate 50 Narrative Exam Narrative: GENERAL APPEARANCE: well developed, well nourished, sitting upright in hospital bed. improved color today. HEENT: Normocephalic, PERRLA, conjunctiva clear, sclera is anicteric, EOMs intact without nystagmus, no sinus tenderness to percussion, no rhinorrhea, mucous membranes are moist and pink without lesions or exudate. NECK/THYROID: neck supple, no JVD, no carotid bruit, no thyromegaly, trachea midline. LYMPH NODES: no cervical or supraclavicular lymphadenopathy. SKIN: [place], warm and dry, no visible lesions or rashes HEART: regular rate and rhythm, no murmur, no rubs or gallops, brisk capillary refill, no edema LUNGS: clear to auscultation bilaterally. no cough today. CHEST: Symmetrical movement, no accessory muscle use, good tidal volume. ABDOMEN: Soft, no distention, no abdominal tenderness, no guarding or peritoneal signs, no organomegaly, no flank or suprapubic tenderness, active bowel tones. BACK: Normal curvature, nontender to palpation EXTREMITIES: Nontender, no joint effusions. NEUROLOGIC: AAO x4, no focal neurologic deficits, cranial nerves II-XII grossly intact, sensation intact to light touch, hearing grossly normal to speech. PSYCH: Briskly interactive, cooperative, appropriate with stable behavior Objective Labs Result Diagrams: 02/18/20 04:35 02/18/20 04:35 Labs: Laboratory Results - last 24 hr 02/18/20 02/18/20 02/18/20 04:35 04:35 08:51 WBC 11.4 H RBC 4.35 L Hgb 13.2 L Hct 39.5 L MCV 90.8 MCH 30.4 MCHC 33.5 RDW 13.0 Plt Count 236 Neut % (Auto) 67.1 Lymph % (Auto) 24.0 L [place] % (Auto) 7.6 Eos % (Auto) 1.2 L Baso % (Auto) 0.1 Neut # (Auto) 7700 H Lymph # (Auto) 2700 [place] # (Auto) 900 Eos # (Auto) 100 Baso # (Auto) 0 ABG pH 7.42 ABG pCO2 40.9 ABG pO2 85 ABG HCO3 27 H ABG Total CO2 28 ABG O2 Saturation 97 ABG Base Excess 2.0 FiO2 55 Sodium 138 Potassium 4.5 Chloride 102 Carbon Dioxide 31 BUN 18 Creatinine 0.72 Estimated GFR > 60.0 BUN/Creatinine Ratio 25.0 H Glucose 107 H Calcium 8.9 Magnesium 2.4 H Total Bilirubin 0.7 Conjugated Bilirubin 0.0 Unconjugated Bilirubin 0.6 AST 68 H ALT 118 H Alkaline Phosphatase 101 Total Protein 7.1 Albumin 3.5 Globulin 3.6 Albumin/Globulin Ratio 1.0 [facility] Medical History Basal cell carcinoma Chronic pain syndrome Hyperlipidemia Hypertension Prediabetes Surgical History History of appendectomy History of hernia repair History of knee surgery Family History Father Diabetes mellitus Mother COPD (chronic obstructive pulmonary disease) Social History household members: spouse and children Smoking Status: Never smoker alcohol intake: current Assessment & Plan Assessment & Plan narrative: This is a 59-year-old male patient with a past medical history significant for hypertension, prediabetes hyperlipidemia chronic pain syndrome who presents to the ER with progressive COVID-19 symptoms. He is admitted for acute hypoxic respiratory failure secondary to COVID-19 pneumonia with superimposed bacterial pneumonia. 1. Acute respiratory failure with hypoxia, present on admission, active -on presentation the patient's respiratory rate of 31 with an SpO2 of 83 on room air. ABG reveals a pH of 7.5, pCO2 of 29.8, PaO2 of 55, bicarb of 23 with a base excess of 0 on 32% FiO2. -patient started on supplemental oxygen with nasal cannula 5 liters/minute, has now advanced to heated high flow as high as 60% FiO2 at 50L, has remained stable around these setting / slightly improved at times over the past 24-36 hours. Blood gas on his max settins showed pO2 of 140. Will continue to wean as tolerated for targets noted below. -per pulmonology recommendations will target goal SpO2 greater than 88%, PaO2 greater than 55% and respiratory rate less than 30 at rest. -will treat underlying COVID-19 pneumonia as below. For superimposed bacterial pneumonia started antibiotics with ceftriaxone and azithromycin. Added vancomycin for a few doses once cultures growing staph, however stopped once MSSA. Azithromycin given x3 doses. Continue cefriaxone x5 days for superimposed pneumonia. -appreciate respiratory therapy assistance with management. -patient will remain on continuous pulse oximetry. Can discontinue telemetry given no events noted thus far. -CTA negative for PE as noted below. 2. Acute COVID-19 pneumonia with superimposed bacterial pnemonia secondary to MSSA and Group G strep, present on admission, active. -patient has previously tested positive for COVID-19 and again tested positive on admission. Full respiratory panel only positive for COVID-19. -patient had elevated inflammatory markers including an elevated D-dimer at 751, CRP elevated at 16.7, LDH of 981 ferritin is 1330 elevated total CK of 181 with a low MB fraction at 0.51 an index of 0.3. Troponin was negative slight elevation of proBNP of 414. Procalcitonin is-0.13. -chest x-ray finds diffuse bilateral infiltrates. Given leukocytosis started on ceftriaxone x5 days and azithomycin x3 days for possible superimposed bacterial pneumonia. CT angiogram negative for PE but shows multiple lobar pneumonia c onsistent with COVID-19. Sputum cultures with MSSA and group G strep. -continue proning at 8 hour intervals as much as possible and continue supportive care. -continue dexamethasone x10 days or until discharge, whichever is soonest. Continue remdesevir up to 10 days or until discharge. -given 1 U convalescent plasma on early AM of 02/15. -ordered albuterol inhaler 2 puffs every 4 hours as needed for wheezing only. -ordered melatonin 6 mg at bedtime for both sleep promotion. -started on famotidine for reflux symptoms, as well as a possible therapeutic effect in COVID. 3. Pre diabetes with hyperglycemia, chronic, stable. -patient is not on glucose lowering medication and has an admission serum glucose of 169. -the patient will be receiving Decadron with expected elevation in serum glucose levels. -ordered fingerstick blood sugars a.c. and hs and coverage with low-dose correctional insulin. -will trend blood sugars to maintain glycemic control. -A1c is 6.4% consistent with pre-diabetes. 4. Hypertension, chronic, stable. -will continue home regimen of lisinopril 10 mg daily in accordance with current recommendations to continue Daryl inhibitor in patient's on the medication with COVID-19 pneumonia. 5. Hyperlipidemia, chronic, stable. -the patient states not currently taking medication for cholesterol. -LDL 80, HDL 21 TC 127 with TG of 241. 6. sepsis ruled out - SOFA score is 2, but only secondary to acute respiratory failure. No other dysregulated response. 7. Chest pain, not present on admission, now resolved - negative troponin, CTA negative for PE, likely related to reflux or muskuloskeletal pain from chronic cough and proning. pain resolved after 5 minutes. He is on famotidine as noted above. Will add oxycodone to assist with ability to prone. 8. Catheter asssociated DVT, acute, not present on admission - patient with RUE DVT on ultrasound with RUE PICC in place. Given severity of respiratory illness at this time and that his line is functioning, will leave in place and have started anticoagulation. He will need AC for 3 months as an outpatient. Plan to remove PICC line if no longer on heated high flow nasal cannula. VTE prophylaxis: Heparin IV fluid: Saline lock Diet: Small Consistent carbohydrate Code status: Full code, the patient wishes CPR but states DO NOT INTUBATE. Did discuss that normally CPR results in intubation but he does not wish to be intubated in the setting of only respiratory failure due to COVID as the patient has 2 family members in [place] or intubated and from COVID-19. He designates his to as is surrogate decision maker. COVID-19 COVID-19 status: Positive Quality VTE Deep Vein Thrombosis/Pulmonary Embolism Present on Admission: No
[2020-02-18] MEDS: REMDESIVIR 100 MG in SODIUM CHLORIDE 0.9% 230 ML 250 ML IV (23:32)
[2020-02-19] VITALS (43 sets, daily range): BP systolic 95–116; BP diastolic 60–73; PULSE 60–99; RESP 18–23; TEMP 36.8–37.4; O2SAT 88–97
[2020-02-19] MEDS: FAMOTIDINE 20 MG/50 ML PIGGYBACK 200 MG IV (00:55)
[2020-02-19 05:08] LABS: Add Manual Diff / Slide Review NO; Basophils Absolute Auto 0 /uL (0-100); Basophils Percent Auto 0.1 % (0-2); Eosinophils Absolute Auto 200 /uL (0-450); Eosinophils Percent Auto 1.7 % (2-4); Hematocrit 40.8 % (41-53); Hemoglobin 13.4 g/dL (13.5-17.5); Lymphocytes Absolute Auto 2900 /uL (1100-4500); Lymphocytes Percent Auto 19.8 % (25-40); Mean Corpuscular HGB Conc 32.9 % (30-36); Mean Corpuscular Hemoglobin 30.1 PG (26-34); Mean Corpuscular Volume 91.6 fL (80-100); Monocytes Absolute Auto 1000 /uL (0-900); Monocytes Percent Auto 7.1 % (3-14); Neutrophils Absolute Auto 10400 /uL (1500-7000); Neutrophils Percent Auto 71.3 % (50-75); Platelet Count 257 X10^3/uL (150-400); Red Blood Cell Count 4.45 X10^6/uL (4.5-5.9); Red Cell Distribution Width 12.9 % (11.6-14.8); White Blood Cell Count 14.5 X10^3/uL (4.5-11.0)
[2020-02-19 05:18] LABS: Alanine Aminotransferase 82 IU/L (<50); Albumin 3.4 g/dL (3.5-5.0); Albumin Globulin Ratio 0.9 (1.0-2.8); Alkaline Phosphatase 93 U/L (38-126); Aspartate Aminotransferase 39 IU/L (17-59); BUN Creatinine Ratio 30.9 (6-22); Bilirubin Total 0.5 mg/dL (0.2-1.3); Blood Urea Nitrogen 21 mg/dL (9-20); Calcium 8.7 mg/dL (8.4-10.2); Carbon Dioxide 29 mmol/L (22-32); Chloride 102 mmol/L (98-107); Estimated Glomerular Filt Rate > 60.0 mL/min (>60); Globulin 3.7 g/dL (1.7-4.1); Glucose 124 mg/dL (70-100); HEMOLYSIS 16 (0-50); Potassium 4.4 mmol/L (3.4-5.1); Sodium 134 mmol/L (137-145); Total Protein 7.1 g/dL (6.3-8.2)
[2020-02-19] MEDS: guaiFENesin ER 600 MG TAB PO ×2 (08:34→21:27)
[2020-02-19] MEDS: lisinopriL 10 MG TABLET PO (08:34)
[2020-02-19] MEDS: OXYCODONE IR 5 MG TABLET PO ×2 (08:34→21:27)
[2020-02-19] MEDS: CEFTRIAXONE 1 GM/50 ML FROZ.PIGGY IV (08:34)
[2020-02-19] MEDS: CHOLECALCIFEROL (VITAMIN D3) 1,000 UNIT TABLET 4000 UNIT PO (08:35)
[2020-02-19] MEDS: DEXAMETHASONE 10 MG/ML VIAL 6 MG IV (08:35)
[2020-02-19] MEDS: CODEINE/GUAIFENESIN LIQUID 5ML UDC 10 ML PO (08:35)
[2020-02-19] MEDS: ENOXAPARIN 80 MG/0.8 ML SYRINGE 75 MG SUBCUT ×2 (08:35→21:27)
[2020-02-19] MEDS: DOCUSATE 100 MG CAPSULE PO (08:46)
[2020-02-19 09:35] LABS: Fractionated Inspired Oxygen 35; HCO3 ABG 25 mmol/L (22-26); Oxygen Saturation ABG 93 % (95-100); PCO2 ABG 37.5 mmHg (35-45); PO2 ABG 66 mmHg (80-100); TCO2 ABG 26 mmol/L (21-31); pH ABG 7.43 (7.35-7.45)
--- NOTE | 2020-02-19 14:37 | PC.NURSE ---
pt able to be weaned to 30% fio2 and 30 liters and spo2 92% - prone very little this shift but will lay on side ( left side lying mostly) using bathroom with only sba- appetite good , moving bowels - picc line remains and is patent but does not draw blood- also dvt to rue
--- NOTE | 2020-02-19 14:54 | CM.DPNOTE ---
Faxed requested clinicals, IMM and DND to [facility]. Fax confirmation scanned into emr. Denise Jeff CM Asst.
[2020-02-19] MEDS: INSULIN ASPART 100 UNIT/ML INSULN PEN SUBCUT (17:09)
--- NOTE | 2020-02-19 17:49 | P.PN_ITS ---
Subjective Subjective Date Patient Seen: 02/19/20 Interval history: Caleb Hyman is a 59-year-old male with a past medical history significant for hypertension, hyperlipidemia, prediabetes, chronic pain syndrome who presented to the ED with known COVID-19 and progressive worsening shortness of breath, fever and myalgias The patient is resting in bed comfortably. He reports overall he feels much better. He continues to have intermittent dry nonproductive cough. His myalgias and fever have resolved. He denies shortness of breath. He endorses intermittent headache. He denies sore throat, chest pain, abdominal pain, nausea, vomiting, fever, chills, dysuria, diarrhea or constipation. He has been titrated off heated high-flow and is on supplemental oxygen at 5 L maintaining oxygen saturations low 90s. He is voiding and eliminating without difficulty. He is up ambulating without assistance. Exam Vital Signs (past 8 hours): - 02/19/20 12:10 02/19/20 12:11 02/19/20 13:31 Temperature 98.7 F Pulse Rate 95 H 81 76 Respiratory Rate 19 20 22 Blood Pressure 109/64 Pulse Oximetry 91 92 92 02/19/20 16:00 02/19/20 16:07 Temperature 98.3 F Pulse Rate 91 H 82 Respiratory Rate 23 20 Blood Pressure 95/60 Pulse Oximetry 92 92 Fraction of Inspired Oxygen 30 Oxygen Delivery Method Nasal Cannula Oxygen Flow Rate 5 Narrative Exam Narrative: General: Middle-aged male lying in bed and is now acute distress, well- developed, well-nourished, appropriately interactive. HEENT: Normocephalic, atraumatic. External ears without defect. Pupils equal, r ound, and reactive to light. Anicteric sclerae, moist conjunctivae, and no lid lag. Oropharynx free of erythema and cobble stoning with moist mucosa. Nasal cannula in place. Neck: Supple with full range of motion. No lymphadenopathy or thyromegaly. Cardiovascular: Regular rate and rhythm without murmurs, rubs, or gallops appreciated. Pulmonary: Diminished throughout but clear to auscultation bilaterally without crackles, wheezes, or rhonchi. Normal respiratory effort with no use of access ory muscles. Abdomen: Soft, bowel sounds present, nontender, nondistended. Extremities: No clubbing, cyanosis, or edema. Right upper extremity with PICC line in place and mild edema and erythema of right forearm. Skin: Normal temperature, turgor, and texture; no rash, ulcers, or subcutaneous nodules appreciated. Neurological: Cranial nerves grossly intact. Psychiatric: Normal mood and affect. Alert and oriented to person, place, and time. Objective Labs Result Diagrams: 02/20/20 04:10 02/20/20 04:10 Labs: Laboratory Results - last 24 hr 02/19/20 02/19/20 02/19/20 04:25 04:25 09:24 WBC 14.5 H RBC 4.45 L Hgb 13.4 L Hct 40.8 L MCV 91.6 MCH 30.1 MCHC 32.9 RDW 12.9 Plt Count 257 Neut % (Auto) 71.3 Lymph % (Auto) 19.8 L [place] % (Auto) 7.1 Eos % (Auto) 1.7 L Baso % (Auto) 0.1 Neut # (Auto) 07798 H Lymph # (Auto) 2900 [place] # (Auto) 1000 H Eos # (Auto) 200 Baso # (Auto) 0 ABG pH 7.43 ABG pCO2 37.5 ABG pO2 66 L ABG HCO3 25 ABG Total CO2 26 ABG O2 Saturation 93 L ABG Base Excess 1.0 FiO2 35 Sodium 134 L Potassium 4.4 Chloride 102 Carbon Dioxide 29 BUN 21 H Creatinine 0.68 Estimated GFR > 60.0 BUN/Creatinine Ratio 30.9 H Glucose 124 H Calcium 8.7 Total Bilirubin 0.5 AST 39 ALT 82 H Alkaline Phosphatase 93 Total Protein 7.1 Albumin 3.4 L Globulin 3.7 Albumin/Globulin Ratio 0.9 L [facility] Medical History Basal cell carcinoma Chronic pain syndrome Hyperlipidemia Hypertension Prediabetes Surgical History History of appendectomy History of hernia repair History of knee surgery Family History Father Diabetes mellitus Mother COPD (chronic obstructive pulmonary disease) Social History household members: spouse and children Smoking Status: Never smoker alcohol intake: current Assessment & Plan Assessment & Plan narrative: Caleb Hyman is a 59-year-old male with a past medical history significant for hypertension, hyperlipidemia, prediabetes, chronic pain syndrome who presented to the ED with known COVID-19 and progressive worsening shortness of breath, fever and myalgias 1. Acute COVID-19 viral pneumonia with likely superimposed bacterial pneumonia, present on admission. Resolving. -Patient presented with progressive worsening shortness of breath, fever, chills, myalgias, intermittent headache with symptoms starting 02/01. Patient is and prediabetic making him higher risk of severe disease. -COVID-19 positive at [facility] with repeat testing positive on 02/14/20. Received convalescent plasma on 02/16/2020. -Initial inflammatory markers: D-dimer elevated at 751, CRP elevated at 16.7, LDH elevated at 981, ferritin elevated at 1330. -Chest x-ray demonstrated diffuse bilateral pulmonary infiltrates consistent with COVID-19 viral pneumonia. Repeat chest x-ray demonstrated bilateral pulmonary infiltrates slightly improved. -Sputum culture grew MSSA and group G strep. Continue ceftriaxone 1 g IV daily for 5 days and received azithomycin 500 mg x3 days to treat superimposed bacterial pneumonia. -Continue respiratory therapy evaluation and treatment. Continue to treat hypoxemic respiratory failure as below. -Received remdesivir 200 mg IV x1 and dexamethasone 6 mg IV x1. Continue remdesivir 100 mg IV daily for 10 days and dexamethasone 6 mg IV daily for 10 days or for duration of hospitalization whichever comes first. -Continue supportive treatment including: Prone positioning frequently and as often as tolerated (goal 12-16 hours in 24 hour period); bronchodilators, antipyretics, antiemetics, and antitussives as needed. -Continue negative pressure isolation for airborne and droplet precautions. 2. Acute hypoxemic respiratory failure, present on admission. Resolving. -Patient presented with respiratory rate of 31 with an SpO2 of 83 on room air. ABG reveals a pH of 7.5, pCO2 of 29.8, PaO2 of 55, bicarb of 23 with a base excess of 0 on 32% FiO2. -Patient was placed on 5 L supplemental oxygen and slowly titrated up and later switched to heated high-flow due to hypoxemia with SpO2 89%, tachypnea and i ncreased work of breathing. -CTA chest negative for PE. -Continue respiratory therapy evaluation and treatment. Continued heated high- flow oxygen with goal at rest PaO2 55/SpO2 88% and respiratory rate < 30. May increase oxygen requirement as necessary during activity or with meals to avoid decompensation and return to prior settings afterward. Continue to monitor ABG as needed to adjust oxygen settings. Patient was titrated off of heated high- flow and now is on supplemental oxygen at 5 L maintaining oxygen saturation low 90s. Continue bronchodilators with albuterol inhaler 2 puffs every 4 hours as needed for shortness of breath or wheezing. Continue prone positioning frequently and as often as tolerated (goal 12-16 hours in 24 hour period). Continue treatment of COVID-19 viral pneumonia as above. 3. Catheter associated DVT, acute, not present on admission -Patient with RUE DVT on ultrasound with RUE PICC in place. Given severity of respiratory illness and functioning PICC line was left in place. Patient has been titrated off of heated high-flow remain stable will remove PICC line likely tomorrow. -Continue therapeutic Lovenox 75 mg twice daily and will need anticoagulation 3 months as an outpatient. 4. Prediabetes, chronic, present on admission. Stable. -Hemoglobin A1c 6.4% indicative of prediabetes and on the cusp of full blown diabetes. -Patient will be receiving Decadron with expected elevation in serum glucose levels. -Continue [facility] blood glucose checks and low-dose correctional scale insulin. -Continue heart healthy/carbohydrate consistent diet. 5. Hypertension, chronic, present on admission. Stable. -Continue home lisinopril 10 mg daily. 6. Hyperlipidemia, chronic, present on admission. Stable. -Patient is not medically treated in likely secondary to prediabetes. -Fasting lipid panel demonstrated: Total cholesterol 127, triglycerides 241, LDL 80, HDL 21. 7. Chest pain, not present on admission, now resolved -Troponin negative. CTA chest negative for PE. Likely related to costochondritis and musculoskeletal pain from chronic coughing and proning versus GERD. Chest pain resolved after 5 minutes. -Continue famotidine for GI prophylaxis. 8. Sepsis ruled out. -SOFA score is 2, but only secondary to acute respiratory failure. No other dysregulated response. Code status: Limited code and patient wishes CPR but states DO NOT INTUBATE. Did discuss that normally CPR results in intubation but he does not wish to be intubated in the setting of only respiratory failure due to COVID as the patient has 2 family members in [place] or intubated and from COVID-19. He designates his to as is surrogate decision maker. VTE prophylaxis: SQ Heparin, SCDs Disposition: Patient likely to discharge home in the next 1-2 days once titrated off of supplemental oxygen. Quality VTE Deep Vein Thrombosis/Pulmonary Embolism Present on Admission: No
--- NOTE | 2020-02-19 19:24 | PC.NURSE ---
Patient sitting up in bed most of the shift. At the beginning of the shift patient switched from HHF FIO2 30% on 30L to NC 5L, sats have been low 90s on 5L. Patient up to the bathroom w/minimal SOB, sats high 80s w/ activity. Gait steady w/FWW. Has occasional cough. Denied any pain.
[2020-02-19] MEDS: BENZOCAINE/MENTHOL 1 LOZ PKT 1 EACH PO (21:27)
[2020-02-19] MEDS: CALCIUM CARBONATE 500 MG TAB PO (21:27)
[2020-02-19] MEDS: FAMOTIDINE 20 MG TABLET PO (21:27)
[2020-02-19] MEDS: REMDESIVIR 100 MG in SODIUM CHLORIDE 0.9% 230 ML 250 ML IV (22:18)
[2020-02-20] VITALS (12 sets, daily range): BP systolic 105–127; BP diastolic 65–75; PULSE 69–78; RESP 18–22; TEMP 36.6–37.2; O2SAT 91–96
--- NOTE | 2020-02-20 00:59 | PC.NURSE ---
Addendum entered by Brisa Luna R.N. 02/20/20 05:44: Patient reports some blurred vision - BP stable. When asked if this is a new finding he states it's because I need to burp. Requested TUMS provided. Encouraged patient to turn lights and TV off to attempt to sleep (full lights and TV have been on all night), patient agreeable and states improvement. Currently proning with Sp02 97% on 5L NC. RUE PICC sluggish blood return, unable to draw but flushes easily. Original Note: Patient received on 5LNC with Sp02 92-93% supine. Up to BR using FWW, steady gait. Mild SOB with exertion per patient. Intermittent cough, non-productive.
[2020-02-20] MEDS: CALCIUM CARBONATE 500 MG TAB PO (04:22)
[2020-02-20 04:56] LABS: Add Manual Diff / Slide Review NO; Basophils Absolute Auto 100 /uL (0-100); Basophils Percent Auto 0.4 % (0-2); Eosinophils Absolute Auto 0 /uL (0-450); Eosinophils Percent Auto 0.3 % (2-4); Hematocrit 40.1 % (41-53); Hemoglobin 13.3 g/dL (13.5-17.5); Lymphocytes Absolute Auto 3100 /uL (1100-4500); Lymphocytes Percent Auto 19.1 % (25-40); Mean Corpuscular HGB Conc 33.3 % (30-36); Mean Corpuscular Hemoglobin 30.4 PG (26-34); Mean Corpuscular Volume 91.3 fL (80-100); Monocytes Absolute Auto 1000 /uL (0-900); Monocytes Percent Auto 6.1 % (3-14); Neutrophils Absolute Auto 11800 /uL (1500-7000); Neutrophils Percent Auto 74.1 % (50-75); Platelet Count 281 X10^3/uL (150-400); Red Blood Cell Count 4.39 X10^6/uL (4.5-5.9); Red Cell Distribution Width 12.8 % (11.6-14.8)
[2020-02-20 05:04] LABS: Alanine Aminotransferase 69 IU/L (<50); Albumin 3.5 g/dL (3.5-5.0); Alkaline Phosphatase 89 U/L (38-126); Aspartate Aminotransferase 42 IU/L (17-59); Bilirubin Total 0.6 mg/dL (0.2-1.3); Blood Urea Nitrogen 21 mg/dL (9-20); Calcium 9.2 mg/dL (8.4-10.2); Carbon Dioxide 28 mmol/L (22-32); Chloride 102 mmol/L (98-107); Estimated Glomerular Filt Rate > 60.0 mL/min (>60); Globulin 3.6 g/dL (1.7-4.1); Glucose 125 mg/dL (70-100); HEMOLYSIS 15 (0-50); Potassium 4.4 mmol/L (3.4-5.1); Sodium 135 mmol/L (137-145); Total Protein 7.1 g/dL (6.3-8.2)
[2020-02-20 07:44] LABS: HCO3 ABG 25 mmol/L (22-26); Oxygen Saturation ABG 96 % (95-100); PCO2 ABG 37.4 mmHg (35-45); PO2 ABG 77 mmHg (80-100); TCO2 ABG 26 mmol/L (21-31); pH ABG 7.43 (7.35-7.45)
[2020-02-20 07:45] LABS: Fractionated Inspired Oxygen 40
[2020-02-20] MEDS: ENOXAPARIN 80 MG/0.8 ML SYRINGE 75 MG SUBCUT (09:22)
[2020-02-20] MEDS: DEXAMETHASONE 10 MG/ML VIAL 6 MG IV (09:22)
[2020-02-20] MEDS: CHOLECALCIFEROL (VITAMIN D3) 1,000 UNIT TABLET 4000 UNIT PO (09:22)
[2020-02-20] MEDS: CODEINE/GUAIFENESIN LIQUID 5ML UDC 10 ML PO (09:22)
[2020-02-20] MEDS: FAMOTIDINE 20 MG TABLET PO (09:23)
[2020-02-20] MEDS: guaiFENesin ER 600 MG TAB PO (09:23)
[2020-02-20] MEDS: lisinopriL 10 MG TABLET PO (09:23)
[2020-02-20] MEDS: SODIUM CHLORIDE 0.9% FLUSH 10 ML IV (09:25)
[2020-02-20] MEDS: OXYCODONE IR 5 MG TABLET PO ×2 (09:44→13:08)
--- NOTE | 2020-02-20 12:35 | PC.NURSE ---
Addendum entered by Arlet Ann R.N. 02/20/20 13:50: pt on room air and 94% while proning- hopeful for discharge this date- picc line removed per md order Original Note: PT WAS ABLE TO BE WEANED TO 3.5 LPM OF 02 THEN DOWN TO NONE- ON ROOM AIR HIS SPO2 88-92% DURING EATING- HE HAS NOT PRONE AT ALL THIS SHIFT - OCCASIONALLY LEFT SIDE LYING
--- NOTE | 2020-02-20 12:50 | CM.DPNOTE ---
Spoke to Shahana at [facility] regarding Eliquis 5 mg, BID, 60 qty. (per Dr. Wilcox) with an out of pocket expense of $0. Relayed this information to the nurse, Arlet. Denise Jeff CM Asst.
--- NOTE | 2020-02-20 15:58 | CM.DPNOTE ---
DC Note According to Dr Wilcox, patient has improved greatly and will be discharged this afternoon. 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 Patient has [facility]. Placed call to patient's cell (in room), who gave this BOATBUILDER SUPERVISOR spouse Licha's number P#[phone]. According to conversation w/spouse, she would like a provider in [facility] for patient if possible, so provided numbers for [facility], [facility] and [facility]. Encouraged Licha to call these clinics Sunday AM to ask if 1. they take patient's insurance and 2. any providers are accepting new patients. Encouraged Licha to schedule an appt to establish patient's PCP komal, spouse appreciative. Licha will plan to transport patient home this evening, she will coordinate p/u time w/ICU staff, provided ICU contact number P: DC home this afternoon/evening w/family and close outpatient f/u recommended, quarantine recommended until 12.15, PCP clinic contact numbers provided. JUAN M
--- NOTE | 2020-02-20 15:59 | P.DS_ITS ---
History of Present Illness History of Present Illness Date Patient Seen: 02/14/20 Chief complaint: cough, sob, low O2 Narrative: Written by Jacob HUDDLESTON: Mr. Caleb Hyman is a 59-year-old male who is Slovenian-speaking only who is a known COVID hot is patient with a past medical history significant only for hypertension (medical records from [facility] further identify pre diabetes, hyperlipidemia and chronic pain syndrome as well as basal cell carcinoma) who presents to the ER with fevers and worsening shortness of breath. The patient has been ill for 13 days after his son tested positive who was working at a retirement. The patient has tested positive for COVID-19 and seen twice at [facility] and discharged to home. Yesterday on his 04 14 visit Yesterday the patient was seen and chest x-ray taken which demonstrated worsening bilateral patchy airspace opacities with the patient was not hypoxic and was discharged home with a pulse oximeter and instructions to prone 8 hours at a time. Today the patient was developing high fevers with progressive shortness of breath as measured by pulse ox down into the 70s with activity and lower with coughing. The patient denies complaints of headaches or dizziness, has no visual changes, nasal congestion or sore throat. He denies chest pain and no chest wall pain on deep inspiration. He has no palpitations. Has significant dyspnea, only being able to speak few words without taking a breath. He has a productive cough clear sputum and denies wheezing. He endorses complaints of epigastric discomfort/heartburn but no abdominal pain, nausea vomiting. The patient states his last bowel movement was this afternoon and denies urinary difficulties. Does report left knee pain and uses assistive devices at home. Upon arrival to the ER the patient is febrile at of 103.2?, tachycardic at 100, blood pressure 124/79 tachypneic with a respiratory rate of 31 saturating 83% on room air. Chest x-ray obtained which finds diffuse bilateral infiltrates suspicious for pneumonitis. ABG is obtained which finds a pH of 7.5, pCO2 of 29.8, PO2 55, bicarb of 23 on 35% FiO2. Laboratory analysis finds a white count of 15.9, hemoglobin 13.0, hematocrit of 38.6 and platelets of 318. His electrolytes are all within normal range she has a BUN of 14 and a creatinine is 0.72. His nonfasting blood sugar is 169. On liver function has a total bilirubin of 0.5, AST 60, ALT of 83 and alkaline phosphatase of 122. D-dimer is elevated at 751. LDH is elevated at 981 and total CK is 181 with MB fraction of 0.51 with an index of 0.3. Troponin is negative at less than 0.012. His elevated C reactive from protein at 16.7 and a proBNP of 414. Lactic acid is 1.6. Procalcitonin is within normal range at 0.13. Patient started on oxygen nasal cannula 5 L with improvement in oxygen saturation to mid 90s incomplete relief of dyspnea. The patient is given Tylenol for his fever and started on remdesivir 200 mg and Decadron 6 mg. The patient is admitted to the hospitalist service for COVID 19 pneumonia. Primary care provider is Suma Dawson MD Discharge Providers Provider Date of admission: 02/14/20 23:43 Discharge Date: 02/20/20 Consults: 02/15/20 00:32 Consult to Discharge Planning Routine Comment: 02/15/20 00:39 Consult to Respiratory Therapy Evaluate & Treat Comment: COVID pneumonia Physician Instructions: Evaluate and treat 02/15/20 01:34 Consult to Physical Therapy Evaluate & Treat Comment: Chronic left knee pain, ataxia, COVID pneumonia Physician Instructions: Evaluate and Treat Discharge provider: Alexandria Wilcox DO Summary Hospital Course Discharge Diagnosis: 1. Acute COVID-19 viral pneumonia with likely superimposed bacterial pneumonia, present on admission. Resolving. 2. Acute hypoxemic respiratory failure, present on admission. Resolved. 3. Acute catheter associated DVT, not present on admission. Resolving. 4. Prediabetes, chronic, present on admission. Stable. 5. Hypertension, chronic, present on admission. Stable. 6. Hyperlipidemia, chronic, present on admission. Stable. 7. Chest pain, not present on admission. Resolved. 8. Sepsis ruled out. Hospital Course: Caleb Hyman is a 59-year-old male with a past medical history significant for hypertension, hyperlipidemia, prediabetes, chronic pain syndrome who presented to the ED with known COVID-19 and progressive worsening shortness of breath, fever and myalgias. 1. Acute COVID-19 viral pneumonia with likely superimposed bacterial pneumonia, present on admission. Resolving. -Patient presented with progressive worsening shortness of breath, fever, chills, myalgias, intermittent headache with symptoms starting 02/01. Patient is and prediabetic making him higher risk of severe disease. -COVID-19 positive at [facility] with repeat testing positive on 02/14/20. -Initial inflammatory markers: D-dimer elevated at 751, CRP elevated at 16.7, LDH elevated at 981, ferritin elevated at 1330. -Chest x-ray demonstrated diffuse bilateral pulmonary infiltrates consistent with COVID-19 viral pneumonia. -Sputum culture grew MSSA and group G strep. Continued ceftriaxone 1 g IV daily for 5 days and received azithomycin 500 mg for 3 days to treat superimposed bacterial pneumonia. -Continued respiratory therapy evaluation and treatment. Continued to treat hypoxemic respiratory failure as below. -Received remdesivir 200 mg IV x1 and dexamethasone 6 mg IV x1. Received convalescent plasma on 02/16/2020. Continued remdesivir 100 mg IV daily for a total of 6 days and dexamethasone 6 mg IV daily for a total of 7 days. -Continued supportive treatment including: Prone positioning frequently and as often as tolerated (goal 12-16 hours in 24 hour period); bronchodilators, antipyretics, antiemetics, and antitussives as needed. -Continued negative pressure isolation, airborne and droplet precautions. 2. Acute hypoxemic respiratory failure, present on admission. Resolved. -Patient presented with respiratory rate of 31 with an SpO2 of 83 on room air. ABG reveals a pH of 7.5, pCO2 of 29.8, PaO2 of 55, bicarb of 23 with a base excess of 0 on 32% FiO2. -Patient was placed on 5 L supplemental oxygen and slowly titrated up and later switched to heated high-flow due to hypoxemia with SpO2 89%, tachypnea and increased work of breathing. -CTA chest negative for PE. -Continued respiratory therapy evaluation and treatment. Continued heated high- flow and supplemental oxygen with goal at rest PaO2 55/SpO2 88% and respiratory rate < 30. Increased oxygen requirement as necessary during activity or with meals to avoid decompensation and returned to prior settings afterward. Continued to monitor ABG as needed to adjust oxygen settings. Patient was titrated off of heated high-flow to supplemental oxygen then titrated off supplemental oxygen completely and maintained oxygen saturations low 90s. Continued bronchodilators with albuterol inhaler 2 puffs every 4 hours as needed for shortness of breath or wheezing. Continued prone positioning frequently and as often as tolerated (goal 12-16 hours in 24 hour period). Continued treatment of COVID-19 viral pneumonia as above. 3. Acute catheter associated DVT, not present on admission. Resolving. -Venous Doppler ultrasound of right upper extremity demonstrated occlusive DVT involving the right brachial vein, axillary vein and subclavian vein secondary to PICC line. Given severity of respiratory illness and functioning PICC line it was left in place and removed once titrated off of heated high-flow oxygen. -Continued therapeutic Lovenox 75 mg twice daily and discharged on Eliquis 5 mg twice daily for anticoagulation 3 months as an outpatient. 4. Prediabetes, chronic, present on admission. Stable. -Hemoglobin A1c 6.4% indicative of prediabetes and on the cusp of full blown diabetes. -Continued [facility] blood glucose checks and low-dose correctional scale insulin. Patient received Decadron with expected elevation in serum glucose levels and WBC. -Continued heart healthy/carbohydrate consistent diet. 5. Hypertension, chronic, present on admission. Stable. -Continued home lisinopril 10 mg daily. 6. Hyperlipidemia, chronic, present on admission. Stable. -Patient is not medically treated and likely secondary to prediabetes. -Fasting lipid panel demonstrated: Total cholesterol 127, triglycerides 241, LDL 80, HDL 21. 7. Chest pain, not present on admission. Resolved. -Troponin negative. CTA chest negative for PE. Likely related to costochondritis and musculoskeletal pain from chronic coughing and proning versus GERD. Chest pain resolved after 5 minutes. -Continued famotidine for GI prophylaxis. 8. Sepsis ruled out. -SOFA score is 2, but only secondary to acute respiratory failure. No other dysregulated response. Exam Vital Signs (past 8 hours): - 02/20/20 09:00 02/20/20 11:04 02/20/20 13:05 Temperature 98.6 F Pulse Rate 78 Respiratory Rate 18 20 Blood Pressure 109/65 Pulse Oximetry 92 95 91 02/20/20 13:08 02/20/20 15:08 Temperature 98.6 F Pulse Rate 78 Respiratory Rate 18 Blood Pressure Pulse Oximetry 92 Fraction of Inspired Oxygen 30 Oxygen Delivery Method Room Air Oxygen Flow Rate 0 Narrative Exam Narrative: General: Middle-aged male lying in bed and is now acute distress, well- developed, well-nourished, appropriately interactive. HEENT: Normocephalic, atraumatic. External ears without defect. Pupils equal, round, and reactive to light. Anicteric sclerae, moist conjunctivae, and no lid lag. Oropharynx free of erythema and cobble stoning with moist mucosa. Nasal cannula in place. Neck: Supple with full range of motion. No lymphadenopathy or thyromegaly. Cardiovascular: Regular rate and rhythm without murmurs, rubs, or gallops appreciated. Pulmonary: Diminished throughout but clear to auscultation bilaterally without crackles, wheezes, or rhonchi. Normal respiratory effort with no use of accessory muscles. Abdomen: Soft, bowel sounds present, nontender, nondistended. Extremities: No clubbing, cyanosis, or edema. Right upper extremity with resolving mild edema and erythema of right forearm due to DVT. Skin: Normal temperature, turgor, and texture; no rash, ulcers, or subcutaneous nodules appreciated. Neurological: Cranial nerves grossly intact. Psychiatric: Normal mood and affect. Alert and oriented to person, place, and time. Objective Labs Result Diagrams: 02/20/20 04:10 02/20/20 04:10 Labs: Laboratory Results - last 24 hr 02/20/20 02/20/20 02/20/20 04:10 04:10 07:30 WBC 16.0 H RBC 4.39 L Hgb 13.3 L Hct 40.1 L MCV 91.3 MCH 30.4 MCHC 33.3 RDW 12.8 Plt Count 281 Neut % (Auto) 74.1 Lymph % (Auto) 19.1 L [place] % (Auto) 6.1 Eos % (Auto) 0.3 L Baso % (Auto) 0.4 Neut # (Auto) 18669 H Lymph # (Auto) 3100 [place] # (Auto) 1000 H Eos # (Auto) 0 Baso # (Auto) 100 ABG pH 7.43 ABG pCO2 37.4 ABG pO2 77 L ABG HCO3 25 ABG Total CO2 26 ABG O2 Saturation 96 ABG Base Excess 1.0 FiO2 40 Sodium 135 L Potassium 4.4 Chloride 102 Carbon Dioxide 28 BUN 21 H Creatinine 0.70 Estimated GFR > 60.0 BUN/Creatinine Ratio 30.0 H Glucose 125 H Calcium 9.2 Total Bilirubin 0.6 AST 42 ALT 69 H Alkaline Phosphatase 89 Total Protein 7.1 Albumin 3.5 Globulin 3.6 Albumin/Globulin Ratio 1.0 [facility] Medical History Basal cell carcinoma Chronic pain syndrome Hyperlipidemia Hypertension Prediabetes Surgical History History of appendectomy History of hernia repair History of knee surgery Family History Father Diabetes mellitus Mother COPD (chronic obstructive pulmonary disease) Social History household members: spouse and children Smoking Status: Never smoker alcohol intake: current Discharge Plan Discharge Plan Patient Disposition: Home Provider Discharge Comment: You are being discharged home. You had COVID-19 viral pneumonia and respiratory failure. Your respiratory failure has resolved and you no longer need oxygen. Your COVID-19 viral pneumonia is resolving. You should remain in quarantine at home for 21 days from onset of symptoms 02/01- 02/22 or until symptoms completely resolve and you must wear a mask in public. Please take it easy, try to get plenty of rest and do not overdo activity. Please lay on your stomach frequently (at least 12 hours a day) to help breathing and oxygen levels. Please use good hygiene, wash hands frequently and cover your cough. Please keep common areas sanitized and wiped down. Please wash bedding and clothing with detergent and hot water and dry on high heat. You may take Tylenol as directed on bottle and as needed for headache or fever. If you develop fever, chills or shortness of breath please seek medical attention immediately. You may visit www.CDC.gov for information regarding COVID-19. You have a blood clot in your right arm due to the IV and have been started on a blood thinner called Eliquis 5 mg twice daily and will need to continue this medication for 3 months. Discharge orders & Medications Prescriptions: New Eliquis 5 mg tablet 5 mg PO BID Qty: 120 RF: 0 Continued lisinopril 10 mg Tablet 10 mg PO DAILY RF: 0 albuterol sulfate 90 mcg/actuation Hfa Aerosol Inhaler 2 puff INHALATION Q4H PRN (Reason: Wheezing) RF: 0 Vitamin D3 2,000 units 1 cap PO DAILY RF: 0 Diet/Activity/Treatments Diet: Carb-consistent/Diabetic, Low-fat, Low-sodium and Low-cholesterol Activity: Activity as tolerated Visit Report/Discharge Packet Instructions: DI for Prediabetes, Enfermedad por coronavirus 2019, Instrucciones de rosalba para COVID-19 (sospechado o confirmado) Quality VTE Deep Vein Thrombosis/Pulmonary Embolism Present on Admission: No
--- NOTE | 2020-02-20 17:37 | PC.NURSE ---
7400- Patient and given discharge instruction. Picc line out. All questions answered. Script given to . No distress noted at time of discharge. Patient stable.
== END 2020-02-20 17:30 | disposition home or self-care (01) | DRG 137 ==
LOC: ED 21:22 → AC 23:43 → ICU 02-15 11:17 → AC 02-16 13:57
PROVIDERS: Internal Medicine; Admitting Provider Nurse Practitioner Adult Health; Emergency Provider Emergency Medicine; Referring Provider Emergency Medicine; Visit Provider Nurse Practitioner Adult Health
DX: U07.1 COVID-19 (principal); J12.89 Other viral pneumonia; J96.01 Acute respiratory failure with hypoxia; R73.03 Prediabetes; I10 Essential (primary) hypertension; R07.89 Other chest pain; J15.211 Pneumonia due to Methicillin susceptible Staphylococcus aureus; J15.4 Pneumonia due to other streptococci; I82.621 Acute embolism and thrombosis of deep veins of right upper extremity; T82.818A Embolism due to vascular prosthetic devices, implants and grafts, initial encounter; E78.5 Hyperlipidemia, unspecified
CPT/HCPCS: 36415; 36430; 36569; 36592; 36600; 71045; 71275; 80048; 80053; 80061; 80076; 82550; 82553; 82728; 82805; 82962; 83036; 83605; 83615; 83735; 83880; 84145; 84484; 85025; 85379; 86140; 86900; 86901; 86927; 87040; 87070; 87077; 87147; 87186; 87205; 87633; 87635; 93005; 93971; 94762; 99284; P9016; A9270; J1100; J1642; J1644; J1650; J2405; Q9967

== ENCOUNTER 2020-04-02 18:09 | Emergency (ER) | payer OTHER, MEDICAID, SELFPAY ==
[2020-02-15 00:07] VITALS: BMI 27.9
[2020-04-02] VITALS (8 sets, daily range): BP systolic 118–123; BP diastolic 69–77; PULSE 70–85; RESP 14–16; TEMP 37.1; O2SAT 95–99; BMI 27.4
[2020-04-02 18:49] LABS: Add Manual Diff / Slide Review NO; Basophils Absolute Auto 100 /uL (0-100); Basophils Percent Auto 1.1 % (0-2); Eosinophils Absolute Auto 400 /uL (0-450); Eosinophils Percent Auto 3.8 % (2-4); Hematocrit 42.6 % (41-53); Hemoglobin 14.5 g/dL (13.5-17.5); Lymphocytes Absolute Auto 4600 /uL (1100-4500); Mean Corpuscular Hemoglobin 31.1 PG (26-34); Mean Corpuscular Volume 91.3 fL (80-100); Monocytes Absolute Auto 800 /uL (0-900); Monocytes Percent Auto 7.1 % (3-14); Neutrophils Absolute Auto 5500 /uL (1500-7000); Platelet Count 200 X10^3/uL (150-400); Red Blood Cell Count 4.66 X10^6/uL (4.5-5.9); Red Cell Distribution Width 14.7 % (11.6-14.8); White Blood Cell Count 11.5 X10^3/uL (4.5-11.0)
[2020-04-02 18:55] LABS: INR 1.1 (0.9-1.3); Prothrombin Time 12.2 SECONDS (10.1-12.7)
[2020-04-02 18:57] LABS: PTT Partial Thromboplastin Tim 32 SECONDS (26.4-36.2)
[2020-04-02 18:58] LABS: Alanine Aminotransferase 22 IU/L (<50); Albumin 4.6 g/dL (3.5-5.0); Albumin Globulin Ratio 1.4 (1.0-2.8); Alkaline Phosphatase 69 U/L (38-126); Aspartate Aminotransferase 26 IU/L (17-59); BUN Creatinine Ratio 13.3 (6-22); Bilirubin Total 0.4 mg/dL (0.2-1.3); Blood Urea Nitrogen 11 mg/dL (9-20); Calcium 10.1 mg/dL (8.4-10.2); Carbon Dioxide 27 mmol/L (22-32); Chloride 105 mmol/L (98-107); Estimated Glomerular Filt Rate > 60.0 mL/min (>60); Globulin 3.4 g/dL (1.7-4.1); Glucose 110 mg/dL (70-100); HEMOLYSIS 19 (0-50); Lipase 77 U/L (23-300); Sodium 139 mmol/L (137-145)
--- NOTE | 2020-04-02 19:46 | DI.CT.S_ITS ---
PROCEDURE: CT ABDOMEN PELVIS W CON INDICATIONS: IV contrast only/right lower quadrant pain TECHNIQUE: After the administration of intravenous contrast, 5 mm thick sections acquired from the diaphragm to the symphysis. 5 mm coronal and sagittal reformats were acquired. For radiation dose reduction, the following was used: automated exposure control, adjustment of mA and/or kV according to patient size. COMPARISON: None. FINDINGS: Image quality: Excellent. ABDOMEN: Lung bases: Lung bases are clear. Heart size is normal. Solid organs: Liver is normal in size and enhancement. Gallbladder is unremarkable. Biliary system is non dilated. Pancreas enhances normally. Spleen is normal in size and enhancement. No adrenal nodules. Kidneys demonstrate normal size and enhancement, without hydronephrosis. Peritoneum and bowel: Bowel loops demonstrate normal wall thickness and caliber. No free fluid or air. Sigmoid diverticulosis without evidence of diverticulitis. The appendix is not identified. No secondary signs of acute appendicitis. Large amount of fecal debris present in the right colon and transverse colon. Nodes and vessels: No retroperitoneal or mesenteric adenopathy by size criteria. Aorta and inferior vena cava are normal in size. Incidental note is made of the presence of a circumaortic left renal vein. Miscellaneous: No ventral hernias. PELVIS: Genitourinary: Bladder wall thickness is normal. Miscellaneous: No inguinal hernias or adenopathy. Bones: No suspicious bony lesions. No vertebral body compression fractures. Bilateral L5 pars defects. Grade 1 anterolisthesis of of of L5 on S1 measuring 9 mm. Severe bilateral L5-S1 foraminal narrowing with bilateral L5 nerve root impingement. There is also canal stenosis at L5-S1. IMPRESSION: 1. No evidence of acute abdominal process. 2. Large fecal load. 3. Bilateral L5 pars defects with grade 1 anterolisthesis of L5 on S1, severe bilateral foraminal stenosis with bilateral L5 nerve root compression, and canal stenosis. 4. Sigmoid diverticulosis without evidence of diverticulitis. Dictated by: Douglas Che M.D. on 04/02/2020 at 20:15 Approved by: Douglas Che M.D. on 04/02/2020 at 20:20
--- NOTE | 2020-04-02 19:55 | ED.ABDPAIN ---
HPI - Abdominal Pain General Chief Complaint: Abdominal Pain Stated Complaint: pain lower right abdomen and around to back Time Seen by Provider: 04/02/20 19:18 Source: patient and family Mode of arrival: Ambulatory Limitations: no limitations History of Present Illness HPI narrative: Patient complains acute onset of right lower quadrant pain starting 4 days ago radiating to right flank. No urinary complaints. Does not radiate to the groin. No hematuria. No nausea vomiting diarrhea. No fever chills. No bloody stools or black stools. No chest pain. No back pain otherwise. MD complaint: abdominal pain and flank pain Related Data Home Medications Medication Instructions Recorded Confirmed Vitamin D3 1 cap PO DAILY 02/15/20 02/15/20 albuterol sulfate 2 puff INHALATION Q4H PRN 02/15/20 02/15/20 lisinopril 10 mg PO DAILY 02/15/20 02/15/20 Previous Rx's Medication Instructions Recorded apixaban [Eliquis] 5 mg PO BID #120 tab 02/20/20 docusate sodium [Colace] 100 mg PO DAILY #20 cap 04/02/20 Allergies Allergy/AdvReac Type Severity Reaction Status Date / Time No Known Drug Allergies Allergy Verified 04/02/20 18:21 Review of Systems Review of Systems Narrative: GENERAL: Denies chills, fatigue, malaise, fever, sweats. HEENT: Denies sinus pain, ear pain, sore throat, difficulty swallowing RESPIRATORY: Denies dyspnea, cough CARDIOVASCULAR: Denies chest pain, palpitations, edema, GASTROINTESTINAL: Denies nausea, vomiting, complains abdominal pain, denies diarrhea, constipation, melena. : Denies dysuria, frequency, hematuria MUSCULOSKELETAL: denies muscle or bony pain SKIN: Denies rash, skin lesions NEUROLOGIC: Denies weakness, headache, numbness, change in speech, confusion PSYCHIATRIC: No SI or HI or hallucinations ROS Unobtainable: All systems reviewed & are unremarkable except as noted in HPI and below Patient History Medical History Basal cell carcinoma Chronic pain syndrome Hyperlipidemia Hypertension Prediabetes Surgical History History of appendectomy History of hernia repair History of knee surgery Family History Father Diabetes mellitus Mother COPD (chronic obstructive pulmonary disease) Social History household members: spouse and children Smoking Status: Never smoker alcohol intake: current Smoking Status: Never smoker alcohol intake frequency: a few times a week Alcohol type: beer Substance Use Type: does not use Exam Narrative Exam Narrative: GENERAL: patient appears stated age. Well-nourished, well-developed patient, in no distress, not toxic not dyspneic HEAD: Normocephalic. EYES: Pupils equal round and reactive. No scleral icterus. No injection no discharge ENT: Mucous membranes moist. No drooling no tongue elevation no trismus no malocclusion NECK: Trachea midline. Non tender CARDIOVASCULAR: Regular rate and rhythm without murmurs, gallops, or rubs. RESPIRATORY: Clear to auscultation. Breath sounds equal bilaterally. No wheezes, rales, or rhonchi. GASTROINTESTINAL: Abdomen soft, tender to touch right lower quadrant, no peritoneal signs, bowel sounds present. No palpable ventral wall hernia , nondistended. EXTREMITIES: No gross deformities. BACK: Nontender without deformity or crepitance. No flank tenderness. NEURO: AOx4. SKIN: Warm and dry PSYCH: Not anxious, is cooperative Initial Vital Signs Initial Vital Signs: Vital Signs Temperature 98.7 F 04/02/20 18:21 Pulse Rate 82 04/02/20 18:21 Respiratory Rate 14 04/02/20 18:21 Blood Pressure 123/77 04/02/20 18:21 Pulse Oximetry 99 04/02/20 18:21 Course Course Course Narrative: No new issues during course of stay. Patient states pain has improved. Orders Ordered: ED Orders 04/02/20 18:20 EKG-12 Lead Stat 04/02/20 18:30 Complete Blood Count AUTO DIFF Stat Comprehensive Metabolic Panel Stat Lipase Stat Partial Thromboplastin Time Stat Prothrombin Time INR Stat 04/02/20 19:46 CT abdomen pelvis w con Stat Discontinued Medications Sodium Chloride (Normal Saline 0.9%) 1,000 mls @ 1,000 mls/hr IV BOLUS ONE Stop: 04/02/20 20:45 Last Infusion: 04/02/20 21:32 Dose: 0 mls/hr Documented by: Admin: 04/02/20 19:59 Dose: 1,000 mls/hr Documented by: CARLOS Magnesium Citrate (Magnesium Citrate 300 Ml Solution) 150 ml PO NOW ONE Stop: 04/02/20 21:53 Last Admin: 04/02/20 21:54 Dose: 150 ml Documented by: ALFRED Morphine Sulfate (Morphine 4 Mg/Ml Inj) 4 mg IV NOW ONE Stop: 04/02/20 19:47 Last Admin: 04/02/20 19:59 Dose: 4 mg Documented by: CARLOS Ondansetron HCl (Ondansetron 4 Mg/2 Ml Inj) 4 mg IV NOW ONE Stop: 04/02/20 19:47 Last Admin: 04/02/20 19:59 Dose: 4 mg Documented by: CARLOS Reevaluation(s) Reevaluation #1: Updated patient and family results of CT scan and laboratory studies. In discussion he does have poor diet with fiber. Does not do/consume very much vegetables or salads. They will make changes to his diet Time: 21:54 Vital Signs Vital signs: Vital Signs - 8 hr 04/02/20 18:21 04/02/20 20:10 04/02/20 20:11 Temperature 98.7 F Pulse Rate 82 85 84 Respiratory Rate 14 16 Blood Pressure 123/77 121/73 Pulse Oximetry 99 98 97 04/02/20 20:30 04/02/20 21:00 04/02/20 21:21 Temperature Pulse Rate 70 77 74 Respiratory Rate Blood Pressure 118/69 Pulse Oximetry 97 95 96 04/02/20 21:30 04/02/20 21:58 Temperature Pulse Rate 76 Respiratory Rate 16 Blood Pressure Pulse Oximetry 96 MDM - Abdominal Pain Differential Diagnosis Differential diagnosis: Likely abdominal pain, calculus of kidney, constipation, diverticulitis and small bowel obstruction Medical Records Attestation: I reviewed the patient's medical records. Lab Data Attestation: I reviewed the patient's lab results. Result diagrams: 04/02/20 18:30 04/02/20 18:30 Labs: Lab Results 04/02/20 04/02/20 04/02/20 Range/Units 18:30 18:30 18:30 WBC 11.5 H (4.5-11.0) X10^3/uL RBC 4.66 (4.5-5.9) X10^6/uL Hgb 14.5 (13.5-17.5) g/dL Hct 42.6 (41-53) % MCV 91.3 (80-100) fL MCH 31.1 (26-34) PG MCHC 34.0 (30-36) % RDW 14.7 (11.6-14.8) % Plt Count 200 (150-400) X10^3/uL Neut % (Auto) 48.0 L (50-75) % Lymph % (Auto) 40.0 (25-40) % [place] % (Auto) 7.1 (3-14) % Eos % (Auto) 3.8 (2-4) % Baso % (Auto) 1.1 (0-2) % Neut # (Auto) 5500 (6292-3365) /uL Lymph # (Auto) 4600 H (0475-8734) /uL [place] # (Auto) 800 (0-900) /uL Eos # (Auto) 400 (0-450) /uL Baso # (Auto) 100 (0-100) /uL PT 12.2 (10.1-12.7) SECONDS INR 1.1 (0.9-1.3) APTT 32 (26.4-36.2) SECONDS Sodium 139 (137-145) mmol/L Potassium 4.0 (3.4-5.1) mmol/L Chloride 105 (98-107) mmol/L Carbon Dioxide 27 (22-32) mmol/L BUN 11 (9-20) mg/dL Creatinine 0.83 (0.66-1.25) mg/dL Estimated GFR > 60.0 (>60) mL/min BUN/Creatinine Ratio 13.3 (6-22) Glucose 110 H (70-100) mg/dL Calcium 10.1 (8.4-10.2) mg/dL Total Bilirubin 0.4 (0.2-1.3) mg/dL AST 26 (17-59) IU/L ALT 22 (<50) IU/L Alkaline Phosphatase 69 (38-126) U/L Total Protein 8.0 (6.3-8.2) g/dL Albumin 4.6 (3.5-5.0) g/dL Globulin 3.4 (1.7-4.1) g/dL Albumin/Globulin Ratio 1.4 (1.0-2.8) Lipase 77 (23-300) U/L Point of care testing: Urine Dip Bedside Urine Glucose Negative Bedside Urine Bilirubin - Negative Bedside Urine Ketone - Negative Urine Specific [place] 1.02 Bedside Urine Occult Blood - Negative Bedside Urine pH 6.0 Bedside Urine Protein - Negative Bedside Urine Urobilinogen +/- 1mg Bedside Urine Nitrite - Negative Bedside Urine Leukocytes - Negative Esterase Imaging Data CT scan - abdomen/pelvis: Radiologist's Impression: [address] [id number] Scan ReportSigned Patient: Caleb Hyman [facility]#: [id number]: 1960Acct:[id number]/Sex: 59 / MDate of Service: 04/02/20Loc: EDAccession Number: [id number] Procedure: CT abdomen pelvis w con Ordering Provider: Manuel Puente MD PROCEDURE: CT ABDOMEN PELVIS W CON INDICATIONS: IV contrast only/right lower quadrant pain TECHNIQUE: After the administration of intravenous contrast, 5 mm thick sections acquired from the diaphragm to the symphysis. 5 mm coronal and sagittal reformats were acquired. For radiation dose reduction, the following was used: automated exposure control, adjustment of mA and/or kV according to patient size. COMPARISON: None. FINDINGS: Image quality: Excellent. ABDOMEN: Lung bases: Lung bases are clear. Heart size is normal. Solid organs: Liver is normal in size and enhancement. Gallbladder is unremarkable. Biliary system is non dilated. Pancreas enhances normally. Spleen is normal in size and enhancement. No adrenal nodules. Kidneys demonstrate normal size and enhancement, without hydronephrosis. Peritoneum and bowel: Bowel loops demonstrate normal wall thickness and caliber. No free fluid or air. Sigmoid diverticulosis without evidence of diverticulitis. The appendix is not identified. No secondary signs of acute appendicitis. Large amount of fecal debris present in the right colon and transverse colon. Nodes and vessels: No retroperitoneal or mesenteric adenopathy by size criteria. Aorta and inferior vena cava are normal in size. Incidental note is made of the presence of a circumaortic left renal vein. Miscellaneous: No ventral hernias. PELVIS: Genitourinary: Bladder wall thickness is normal. Miscellaneous: No inguinal hernias or adenopathy. Bones: No suspicious bony lesions. No vertebral body compression fractures. Bilateral L5 pars defects. Grade 1 anterolisthesis of of of L5 on S1 measuring 9 mm. Severe bilateral L5-S1 foraminal narrowing with bilateral L5 nerve root impingement. There is also canal stenosis at L5-S1. IMPRESSION: 1. No evidence of acute abdominal process. 2. Large fecal load. 3. Bilateral L5 pars defects with grade 1 anterolisthesis of L5 on S1, severe bilateral foraminal stenosis with bilateral L5 nerve root compression, and canal stenosis. 4. Sigmoid diverticulosis without evidence of diverticulitis. Dictated by: Douglas Che M.D. on 04/02/2020 at 20:15 Approved by: Douglas Che M.D. on 04/02/2020 at 20:20 ECG Data Attestation: I personally reviewed and interpreted this ECG as follows: Interpretation: Normal sinus rhythm, no ST elevation or depression. Rate 78 MDM Narrative Medical decision making narrative: Appropriate for discharge home. Giving Mag citrate prior to departure patient desires to go home and not use the bathroom here. Discharge Plan Departure Patient Disposition: Home Clinical Impression: Abdominal pain Qualifiers: Abdominal location: right lower quadrant Qualified Code(s): R10.31 - Right lower quadrant pain Instructions: DI for Abdominal Pain-Adult, DI for Constipation Activity Restrictions/Additional Instructions: See family doctor in a week for recheck. Be sure to drink plenty of water. Increase daily vegetables and salads. Return if worse if any questions or concerns Prescriptions: New docusate sodium [Colace] 100 mg capsule 100 mg PO DAILY Qty: 20 RF: 0 No Action lisinopril 10 mg Tablet 10 mg PO DAILY RF: 0 albuterol sulfate 90 mcg/actuation Hfa Aerosol Inhaler 2 puff INHALATION Q4H PRN (Reason: Wheezing) RF: 0 Vitamin D3 2,000 units 1 cap PO DAILY RF: 0 Eliquis 5 mg tablet 5 mg PO BID Qty: 120 RF: 0 Referrals: [facility] [Outside]
[2020-04-02] MEDS: ONDANSETRON 4 MG/2 ML INJ IV (19:59)
[2020-04-02] MEDS: MORPHINE 4 MG/ML INJ IV (19:59)
[2020-04-02] MEDS: SODIUM CHLORIDE 0.9% 1,000 ML 1000 ML IV (19:59)
[2020-04-02] MEDS: MAGNESIUM CITRATE 300 ML SOLUTION 150 ML PO (21:54)
== END 2020-04-02 22:06 | disposition home or self-care (01) ==
PROVIDERS: Emergency Provider Emergency Medicine
DX: R10.31 Right lower quadrant pain (principal); E78.5 Hyperlipidemia, unspecified; I10 Essential (primary) hypertension; R73.03 Prediabetes
CPT/HCPCS: 36415; 74177; 80053; 81003; 83690; 85025; 85610; 85730; 93005; 96361; 96374; 96375; 99283; 99284; J2270; J2405

== ENCOUNTER 2022-02-03 10:00 | Emergency (ER) | payer OTHER, MEDICAID, SELFPAY ==
[2020-02-15 00:07] VITALS: BMI 27.9
[2022-02-03 10:16] VITALS: BP 135/86; PULSE 96; RESP 14; TEMP 38.8; O2SAT 97; BMI 28.6
--- NOTE | 2022-02-03 10:22 | DI.RAD.S_ITS ---
PROCEDURE: XR CHEST 1V INDICATIONS: Flu like symptoms TECHNIQUE: One view of the chest was acquired. COMPARISON: [facility], CR, XR CHEST FOR PICC 1V, 02/15/2020, 19:48. FINDINGS: Surgical changes and devices: None. Lungs and pleura: Lungs are clear. No pleural effusions or pneumothorax. Mediastinum: Mediastinal contours appear normal. Heart size is normal. Bones and chest wall: No suspicious bony lesions. Overlying soft tissues appear unremarkable. IMPRESSION: No evidence acute pulmonary process. Dictated by: Douglas Che M.D. on 02/03/2022 at 11:19 Approved by: Douglas Che M.D. on 02/03/2022 at 11:34
[2022-02-03] MEDS: IBUPROFEN 400 MG TABLET 800 MG PO (10:31)
[2022-02-03] MEDS: BENZONATATE 100 MG CAPSULE PO (10:31)
[2022-02-03 10:32] VITALS: TEMP 38.8
[2022-02-03] MEDS: guaiFENesin Solution 100 MG/5 ML UDC PO (10:32)
[2022-02-03] MEDS: ACETAMINOPHEN 325 MG TABLET 975 MG PO (10:32)
[2022-02-03 11:13] LABS: Influenza A - CEPHEID Flu A POSITIVE (NEGATIVE); Influenza B - CEPHEID Flu B NEGATIVE (NEGATIVE); Respiratory Syncytial Virus Negative (Negative)
[2022-02-03 11:19] LABS: COVID-19 CEPHEID 4-PLEX PCR Negative (Negative)
[2022-02-03 13:26] VITALS: BP 130/81; PULSE 82; RESP 18; TEMP 37; O2SAT 96
--- NOTE | 2022-02-03 14:04 | ED_ITS ---
HPI - Fever <FLAQUITO Taylor - Last Filed: 02/03/22 14:31> General Chief Complaint: Fever Stated Complaint: cough, throat hurts, not sleeping, back hurts t-4 Time Seen by Provider: 02/03/22 13:49 Source: patient Mode of arrival: Ambulatory History of Present Illness HPI Narrative: This is a 61-year-old gentleman who presents to the emergency department with cough, congestion, sore throat, muscle aches, fatigue, and chills for the last 4 days. Patient denies shortness of breath, wheezing, difficulty breathing, he is a nonsmoker, denies nausea, vomiting, chest pain or weakness. He denies dysuria, abdominal pain, diarrhea. Complains most of the sore throat and cough, has taken DayQuil and NyQuil which have not helped he says. Patient's states that he has had sweating with his chills, thinks that he is had a fever. He is not had a flu shot this year and was recently exposed to influenza A. Related Data Home Medications Medication Instructions Recorded Confirmed lisinopril 10 mg tablet 10 mg PO DAILY 02/15/20 02/03/22 Previous Rx's Medication Instructions Recorded benzonatate 100 mg capsule 100 mg PO BID PRN cough #20 caps 02/03/22 guaifenesin 600 mg tablet, 600 mg PO BID PRN cough #20 tabs 02/03/22 extended release 12 hr Allergies Allergy/AdvReac Type Severity Reaction Status Date / Time No Known Drug Allergies Allergy Verified 02/03/22 10:21 Review of Systems <FLAQUITO Taylor - Last Filed: 02/03/22 14:31> Review of Systems Narrative: Review of systems is negative for acute abnormalities unless otherwise noted in HPI Patient History <FLAQUITO Taylor - Last Filed: 02/03/22 14:31> Medical History Basal cell carcinoma Chronic pain syndrome Hyperlipidemia Hypertension Prediabetes Surgical History History of appendectomy History of hernia repair History of knee surgery Family History Father Diabetes mellitus Mother COPD (chronic obstructive pulmonary disease) Social History household members: spouse and children Smoking Status: Never smoker alcohol intake: current Smoking Status: Never smoker alcohol intake frequency: a few times a week Alcohol type: beer Substance Use Type: does not use Exam <FLAQUITO Taylor - Last Filed: 02/03/22 14:31> Narrative Exam Narrative: Independently reviewed vital signs and nursing notes. General: Awake, alert, nontoxic, no cardiorespiratory distress Head/Neck: Atraumatic, neck full range of motion, no cervical lymphadenopathy, posterior pharynx with erythema, no significant tonsillar adenopathy Eyes: EOMI, conjunctiva mildly injected bilaterally, Ears: external ears normal Nose: nares patent, rhinorrhea and congestion is present Mouth/Throat: moist mucus membranes, posterior pharynx normal, no oral lesions Cardio: Regular rate and rhythm, no peripheral edema, patient warm to touch Respiratory: CTAB unlabored without wheezing, stridor, or rales. No retractions. Productive cough, clear, without hypoxia, tachypnea, or increased respiratory e ffort. MSK: Moves all extremities, neurovascularly intact Skin: Normal capillary refill, no rash Neuro: Normal speech and cognition, normal gait Initial Vital Signs Initial Vital Signs: Vital Signs Temperature 102 F H 02/03/22 10:16 Pulse Rate 96 H 02/03/22 10:16 Respiratory Rate 14 02/03/22 10:16 Blood Pressure 135/86 02/03/22 10:16 Pulse Oximetry 97 02/03/22 10:16 Oxygen Delivery Method 02/03/22 10:16 <Leopoldo Wu DO - Last Filed: 02/03/22 14:33> Initial Vital Signs Initial Vital Signs: Vital Signs Temperature 102 F H 02/03/22 10:16 Pulse Rate 96 H 02/03/22 10:16 Respiratory Rate 14 02/03/22 10:16 Blood Pressure 135/86 02/03/22 10:16 Pulse Oximetry 97 02/03/22 10:16 Oxygen Delivery Method 02/03/22 10:16 Course <FLAQUITO Taylor - Last Filed: 02/03/22 14:31> Orders Ordered: ED Orders 02/03/22 10:22 XR chest 1V Stat 02/03/22 10:24 Covid-19 + FLU A/B + RSV - PCR Stat Discontinued Medications Acetaminophen (Acetaminophen 325 Mg Tablet) 975 mg PO NOW ONE Stop: 02/03/22 10:23 Last Admin: 02/03/22 10:32 Dose: 975 mg Documented By: JORI Benzonatate (Benzonatate 100 Mg Capsule) 100 mg PO NOW ONE Stop: 02/03/22 10:28 Last Admin: 02/03/22 10:31 Dose: 100 mg Documented By: JORI Dexamethasone (Dexamethasone 10 Mg/Ml Vial) 10 mg IV NOW ONE Stop: 02/03/22 13:58 Last Admin: 02/03/22 14:12 Dose: Not Given Documented By: AT Dexamethasone (Dexamethasone 10 Mg/Ml Vial) 10 mg PO NOW ONE Stop: 02/03/22 14:13 Last Admin: 02/03/22 14:14 Dose: 10 mg Documented By: AT Guaifenesin (Guaifenesin Solution 100 Mg/5 Ml Udc) 100 mg PO NOW ONE Stop: 02/03/22 10:27 Last Admin: 02/03/22 10:32 Dose: 100 mg Documented By: JORI Ibuprofen (Ibuprofen 400 Mg Tablet) 800 mg PO NOW ONE Stop: 02/03/22 10:23 Last Admin: 02/03/22 10:31 Dose: 800 mg Documented By: JORI Ketorolac Tromethamine (Ketorolac 30 Mg/Ml Vial) 30 mg IM NOW ONE Stop: 02/03/22 13:58 Last Admin: 02/03/22 14:07 Dose: Not Given Documented By: AT Vital Signs Vital signs: Vital Signs - 8 hr 02/03/22 10:16 02/03/22 10:32 02/03/22 13:26 Temperature 102 F H 102 F H 98.6 F Pulse Rate 96 H 82 Respiratory Rate 14 18 Blood Pressure 135/86 130/81 Pulse Oximetry 97 96 Oxygen Delivery Method Room Air Room Air <Leopoldo Wu DO - Last Filed: 02/03/22 14:33> Orders Ordered: ED Orders 02/03/22 10:22 XR chest 1V Stat 02/03/22 10:24 Covid-19 + FLU A/B + RSV - PCR Stat Discontinued Medications Acetaminophen (Acetaminophen 325 Mg Tablet) 975 mg PO NOW ONE Stop: 02/03/22 10:23 Last Admin: 02/03/22 10:32 Dose: 975 mg Documented By: JORI Benzonatate (Benzonatate 100 Mg Capsule) 100 mg PO NOW ONE Stop: 02/03/22 10:28 Last Admin: 02/03/22 10:31 Dose: 100 mg Documented By: JORI Dexamethasone (Dexamethasone 10 Mg/Ml Vial) 10 mg IV NOW ONE Stop: 02/03/22 13:58 Last Admin: 02/03/22 14:12 Dose: Not Given Documented By: AT Dexamethasone (Dexamethasone 10 Mg/Ml Vial) 10 mg PO NOW ONE Stop: 02/03/22 14:13 Last Admin: 02/03/22 14:14 Dose: 10 mg Documented By: AT Guaifenesin (Guaifenesin Solution 100 Mg/5 Ml Udc) 100 mg PO NOW ONE Stop: 02/03/22 10:27 Last Admin: 02/03/22 10:32 Dose: 100 mg Documented By: JORI Ibuprofen (Ibuprofen 400 Mg Tablet) 800 mg PO NOW ONE Stop: 02/03/22 10:23 Last Admin: 02/03/22 10:31 Dose: 800 mg Documented By: JORI Ketorolac Tromethamine (Ketorolac 30 Mg/Ml Vial) 30 mg IM NOW ONE Stop: 02/03/22 13:58 Last Admin: 02/03/22 14:07 Dose: Not Given Documented By: AT Vital Signs Vital signs: Vital Signs - 8 hr 02/03/22 10:16 02/03/22 10:32 02/03/22 13:26 Temperature 102 F H 102 F H 98.6 F Pulse Rate 96 H 82 Respiratory Rate 14 18 Blood Pressure 135/86 130/81 Pulse Oximetry 97 96 Oxygen Delivery Method Room Air Room Air MDM - Fever <FLAQUITO Taylor - Last Filed: 02/03/22 14:31> Lab Data Labs: Lab Results 02/03/22 Range/Units 10:24 SARS-CoV-2 (PCR) Negative (Negative) Influenza A (RT-PCR) Flu a positive H (NEGATIVE) Influenza B (RT-PCR) Flu b negative (NEGATIVE) RSV (PCR) Negative (Negative) MDM Narrative Medical decision making narrative: This is a 61-year-old gentleman who presents to the emergency department with 4 days of cough, cold, congestion, muscle aches, sore throat and complains of chills with sweating. Respiratory panel positive for influenza a, he is not hypoxic, tolerating p.o. without vomiting, is a nonsmoker without any prior heart or lung disease. He was medicated with Tylenol, ibuprofen, guaifenesin, Tessalon Perles, and Decadron for his symptoms. He was given strict return precautions for worsening of his symptoms, encouraged to use Tylenol, Motrin, [id number]-[id number] antihistamine/antitussives for his symptoms as needed. He is nontoxic appearing, breath sounds are clear throughout. Patient is appropriate and amenable to discharge home. Vital signs are stable on repeat examination is unremarkable. Patient has been informed of results. Patient has been given strict return to ER precautions for any new or worsening symptoms. Patient understands to follow up closely with outpatient providers as instructed. Patient understands plan and agrees to discharge home. All questions and concerns answered at this time. <Leopoldo Wu, - Last Filed: 02/03/22 14:33> Lab Data Labs: Lab Results 02/03/22 Range/Units 10:24 SARS-CoV-2 (PCR) Negative (Negative) Influenza A (RT-PCR) Flu a positive H (NEGATIVE) Influenza B (RT-PCR) Flu b negative (NEGATIVE) RSV (PCR) Negative (Negative) Discharge Plan Departure Patient Disposition: Home Clinical Impression: Influenza A Instructions: Influenza Activity Restrictions/Additional Instructions: *You have been diagnosed with influenza A. This causes the cough, throat pain, congestion, muscle aches and most of his symptoms. Chest x-ray is negative for pneumonia. His symptoms should start to get better. Please use Zyrtec daily for congestion, ibuprofen 100 mg every 8 hours with food and water, and Tylenol as needed. Please use Mucinex or wet cause. I have sent to medicines for your cough to [facility] in [place]. Please pick these up, guaifenesin is the same as Mucinex, and benzonatate is for frequent cough. Okay to take the other medicines with this. Please stay hydrated with plenty of clear fluids. *What to do: *Please continue to take your regular medications as directed. [ x] New medication prescriptions sent to your pharmacy: [[facility] ] [ ] New medication written as a paper prescription [ ] No new medications given *Please follow up with your primary care provider in 2-3 days, call for an appointment. Let them know you were seen in the Emergency Department and that we asked that you be seen for follow-up. We will electronically transmit a record of today's note if your PCP is in our system *If you do not have a primary care provider please contact [phone] to establish care with one of the [facility] primary care providers. *Return to Emergency Department if you should have any new, worsening, or concerning symptoms, such as [fever greater than 101F, chills, worsening pain, persistent vomiting or other bothersome symptoms]. Prescriptions: New benzonatate 100 mg capsule 100 mg PO BID PRN (Reason: cough) Qty: 20 0RF guaifenesin 600 mg tablet extended release 12hr 600 mg PO BID PRN (Reason: cough) Qty: 20 0RF No Action lisinopril 10 mg Tablet 10 mg PO DAILY Visit Report Forms: Patient Portal/API <Leopoldo Wu, DO - Last Filed: 02/03/22 14:33> [facility] Dr Wu Co-Sign Statement: I was available for consultation during this patient's emergency department visit. This chart is signed by myself for administrative purposes only. I did not have direct contact with this patient during this visit. They were seen independently by the APC.
[2022-02-03] MEDS: DEXAMETHASONE 10 MG/ML VIAL PO (14:14)
== END 2022-02-03 14:19 | disposition home or self-care (01) ==
PROVIDERS: Emergency Medicine; Emergency Provider Nurse Practitioner Critical Care Medicine
DX: J10.1 Influenza due to other identified influenza virus with other respiratory manifestations (principal); Z20.822 Contact with and (suspected) exposure to COVID-19
CPT/HCPCS: 0241U; 71045; 99283; J1100

== ENCOUNTER 2022-02-07 16:37 | Emergency (ER) | payer OTHER, MEDICAID, SELFPAY ==
[2020-02-15 00:07] VITALS: BMI 27.9
[2022-02-07 16:55] VITALS: BP 136/83; PULSE 97; RESP 20; TEMP 37.6; O2SAT 98; BMI 28.6
--- NOTE | 2022-02-07 17:05 | DI.RAD.S_ITS ---
PROCEDURE: XR CHEST 2V INDICATIONS: cough/flu TECHNIQUE: 2 views of the chest were acquired. COMPARISON: [facility], CR, XR CHEST 1V, 02/03/2022, 11:06. FINDINGS: Surgical changes and devices: None. Lungs and pleura: Lungs are clear. No pleural effusions or pneumothorax. Mediastinum: Mediastinal contours are normal. Heart size is normal. Bones and chest wall: No suspicious bony abnormalities. Soft tissues appear unremarkable. IMPRESSION: No acute pulmonary process. Dictated by: Lore Tolentino M.D. on 02/07/2022 at 17:36 Approved by: Lore Tolentino M.D. on 02/07/2022 at 17:36
[2022-02-07] MEDS: KETOROLAC 30 MG/ML VIAL IM (17:56)
--- NOTE | 2022-02-07 18:16 | ED_ITS ---
HPI - URI/Sore Throat <FLAQUITO Taylor - Last Filed: 02/07/22 18:52> General Chief Complaint: Upper Respiratory Symptoms Stated Complaint: cough is getting worse Time Seen by Provider: 02/07/22 17:04 Source: patient Mode of arrival: Ambulatory History of Present Illness HPI Narrative: This is a 61-year-old male who presents to the emergency department after being seen and diagnosed with influenza a on 02/03/2022 in the emergency department by myself, he returns with worsening cough, states it has not gotten any better and is mildly productive. Patient has been using his Tessalon Perles and guaifenesin and state that his cough is not better. He has been taking Tylenol at home without ibuprofen. State that other members of the household have gotten better but not this patient. states that he has used albuterol in the past for another respiratory illness and it was helpful for him at that time. Denies vomiting, diarrhea, fever or chills. Related Data Home Medications Medication Instructions Recorded Confirmed lisinopril 10 mg tablet 10 mg PO DAILY 02/15/20 02/03/22 Previous Rx's Medication Instructions Recorded benzonatate 100 mg capsule 100 mg PO BID PRN cough #20 caps 02/03/22 guaifenesin 600 mg tablet, 600 mg PO BID PRN cough #20 tabs 02/03/22 extended release 12 hr albuterol sulfate 90 mcg/actuation 1 puff inhalation QID PRN 02/07/22 aerosol inhaler shortness of breath or wheezing #8.5 grams guaifenesin 600 mg tablet, 600 mg PO BID #14 tabs 02/07/22 extended release 12 hr inhalational spacing device #1 ea 02/07/22 (Aerochamber MV spacer) prednisone 20 mg tablet 20 mg PO DAILY 4 days #4 tabs 02/07/22 Allergies Allergy/AdvReac Type Severity Reaction Status Date / Time No Known Drug Allergies Allergy Verified 02/03/22 10:21 Review of Systems <FLAQUITO Taylor - Last Filed: 02/07/22 18:52> Review of Systems Narrative: Review of systems is negative for acute abnormalities unless otherwise noted in HPI Patient History <FLAQUITO Taylor - Last Filed: 02/07/22 18:52> Medical History Basal cell carcinoma Chronic pain syndrome Hyperlipidemia Hypertension Prediabetes Surgical History History of appendectomy History of hernia repair History of knee surgery Family History Father Diabetes mellitus Mother COPD (chronic obstructive pulmonary disease) Social History household members: spouse and children Smoking Status: Never smoker alcohol intake: current Smoking Status: Never smoker alcohol intake frequency: a few times a week Alcohol type: beer Substance Use Type: does not use Exam <FLAQUITO Taylor - Last Filed: 02/07/22 18:52> Narrative Exam Narrative: Reviewed vitals signs and nursing notes. General: cooperative, comfortable, in no acute distress, well groomed HEENT: symmetrical facial expressions, moist mucous membranes Cardiovascular: regular rate and rhythm, no peripheral edema, warm extremities Respiratory: normal effort, able to speak in complete sentences, without wheezing, stridor, or abnormal breath sounds. Without retractions. Frequent cough, diminished breath sounds to bilateral bases, mildly increased effort and rate After patient's DuoNeb, his aeration improved, patient reported feeling better, no longer tachypneic or with diminished breath sounds bilaterally GI: abdomen soft, nontender to palpation, nondistended, without masses, rebound tenderness or exquisite tenderness with exam. MSK: moves all extremities, neurovascularly intact, no weakness, normal tone Skin: brisk capillary refill, without pallor or erythema Neuro: normal speech and cognition, A&O x3, ambulatory, clear speech Psych: mental status is grossly normal, congruent mood, normal affect, pleasant and cooperative Initial Vital Signs Initial Vital Signs: Vital Signs Temperature 99.6 F 02/07/22 16:55 Pulse Rate 97 H 02/07/22 16:55 Respiratory Rate 20 02/07/22 16:55 Blood Pressure 136/83 02/07/22 16:55 Pulse Oximetry 98 02/07/22 16:55 Oxygen Delivery Method 02/07/22 16:55 <Kaushik Sanchez DO - Last Filed: 02/07/22 22:15> Initial Vital Signs Initial Vital Signs: Vital Signs Temperature 99.6 F 02/07/22 16:55 Pulse Rate 97 H 02/07/22 16:55 Respiratory Rate 20 02/07/22 16:55 Blood Pressure 136/83 02/07/22 16:55 Pulse Oximetry 98 02/07/22 16:55 Oxygen Delivery Method 02/07/22 16:55 Course <FLAQUITO Taylor - Last Filed: 02/07/22 18:52> Orders Ordered: ED Orders 02/07/22 17:05 Chest [XR chest 2V] Stat 02/07/22 17:06 RT Consult Eval and Treat NOW Discontinued Medications Acetaminophen (Acetaminophen 325 Mg Tablet) 650 mg PO NOW ONE Stop: 02/07/22 18:15 Last Admin: 02/07/22 18:59 Dose: 650 mg Documented By: KAISER Albuterol (Albuterol Hfa Prepack) 1 box MISC SEEINSTR ONE Stop: 02/07/22 18:48 Last Admin: 02/07/22 19:01 Dose: 1 box Documented By: KALEIGH Albuterol/Ipratropium (Albuterol/Ipratropium 3 Ml Ampul) 3 ml INH NOW ONE Stop: 02/07/22 18:15 Last Admin: 02/07/22 18:37 Dose: 3 ml Documented By: KALEIGH Dexamethasone (Dexamethasone 10 Mg/Ml Vial) 10 mg PO NOW ONE Stop: 02/07/22 18:15 Last Admin: 02/07/22 18:58 Dose: 10 mg Documented By: KAISER Guaifenesin/Dextromethorphan (Guaifenesin/Dm 200/20 Mg/10 Ml [facility] [place] 10 ml PO NOW ONE Stop: 02/07/22 18:15 Last Admin: 02/07/22 19:01 Dose: 10 ml Documented By: KAISER Ketorolac Tromethamine (Ketorolac 30 Mg/Ml Vial) 30 mg IM NOW ONE Stop: 02/07/22 17:06 Last Admin: 02/07/22 17:56 Dose: 30 mg Documented By: KAISER(2) Vital Signs Vital signs: Vital Signs - 8 hr 02/07/22 16:55 02/07/22 18:28 02/07/22 19:20 Temperature 99.6 F 99.7 F H Pulse Rate 97 H 94 H 86 Respiratory Rate 20 20 Blood Pressure 136/83 142/85 H Pulse Oximetry 98 95 97 Oxygen Delivery Method Room Air Room Air Room Air <Kaushik Sanchez DO - Last Filed: 02/07/22 22:15> Orders Ordered: ED Orders 02/07/22 17:05 Chest [XR chest 2V] Stat 02/07/22 17:06 RT Consult Eval and Treat NOW Discontinued Medications Acetaminophen (Acetaminophen 325 Mg Tablet) 650 mg PO NOW ONE Stop: 02/07/22 18:15 Last Admin: 02/07/22 18:59 Dose: 650 mg Documented By: KAISER Albuterol (Albuterol Hfa Prepack) 1 box MISC SEEINSTR ONE Stop: 02/07/22 18:48 Last Admin: 02/07/22 19:01 Dose: 1 box Documented By: KALEIGH Albuterol/Ipratropium (Albuterol/Ipratropium 3 Ml Ampul) 3 ml INH NOW ONE Stop: 02/07/22 18:15 Last Admin: 02/07/22 18:37 Dose: 3 ml Documented By: KALEIGH Dexamethasone (Dexamethasone 10 Mg/Ml Vial) 10 mg PO NOW ONE Stop: 02/07/22 18:15 Last Admin: 02/07/22 18:58 Dose: 10 mg Documented By: KAISER Guaifenesin/Dextromethorphan (Guaifenesin/Dm 200/20 Mg/10 Ml c) 10 ml PO NOW ONE Stop: 02/07/22 18:15 Last Admin: 02/07/22 19:01 Dose: 10 ml Documented By: KAISER Ketorolac Tromethamine (Ketorolac 30 Mg/Ml Vial) 30 mg IM NOW ONE Stop: 02/07/22 17:06 Last Admin: 02/07/22 17:56 Dose: 30 mg Documented By: KAISER(2) Vital Signs Vital signs: Vital Signs - 8 hr 02/07/22 16:55 02/07/22 18:28 02/07/22 19:20 Temperature 99.6 F 99.7 F H Pulse Rate 97 H 94 H 86 Respiratory Rate 20 20 Blood Pressure 136/83 142/85 H Pulse Oximetry 98 95 97 Oxygen Delivery Method Room Air Room Air Room Air MDM - URI/Sore Throat <FLAQUITO Taylor - Last Filed: 02/07/22 18:52> Imaging Data Chest x-ray: Radiologist's Impression: PROCEDURE:? XR CHEST 2V ? INDICATIONS:? cough/flu ? TECHNIQUE:? 2 views of the chest were acquired.? ? COMPARISON:? [facility], CR, XR CHEST 1V, 02/03/2022, 11:06. ? FINDINGS:? ? Surgical changes and devices:? None.? ? Lungs and pleura:? Lungs are clear.? No pleural effusions or pneumothorax.? ? Mediastinum:? Mediastinal contours are normal.? Heart size is normal.? ? Bones and chest wall:? No suspicious bony abnormalities.? Soft tissues appear unremarkable.? ? IMPRESSION:? No acute pulmonary process. ? Dictated by: Lore Tolentino M.D. on 02/07/2022 at 17:36 ? ? Approved by: Lore Tolentino M.D. on 02/07/2022 at 17:36 ? MDM Narrative Medical decision making narrative: This is a 61-year-old gentleman who presents emergency department after being diagnosed with influenza a on 02/03/2022, today's day 8 of his symptoms with ongoing frequent cough, congestion, muscle aches, and state that his cough is the worst symptom. He was given Tessalon Perles, guaifenesin and dexamethasone during his last visit, states that it has been helpful but his symptoms have persisted and are no better. Chest x-ray today does not show any cardiopulmonary abnormalities. On exam he was mildly tachypneic with diminished breath sounds bilaterally, he is given a DuoNeb which improved his aeration, work of breathing and comfort. Patient is influenza A positive on day 8 of his symptoms without hypoxia, respiratory distress, dehydration, or focal exam to suggest secondary bacterial infection. Other possible diagnosis' considered include; viral URI, influenza, pneumonia, pharyngitis, acute bronchitis, allergic rhinitis, pertussis, sinusitis, appendicitis, dehydration. Rest, drink plenty of fluids, NSAIDS for muscle aches and pains. Return to ED for worsening symptoms such as SOB, chest pain, inability to take adequate oral fluids, fever, or productive cough. Discussed supportive treatments: Tylenol/Motrin as needed for pain/fever. OTC decongestant medications and/or antihistamines for symptomatic relief. Maintain adequate fluid intake. Follow- up with PCP as directed. Return to clinic/ER instructions discussed for new, not improving, or worsening symptoms. All questions answered. #116 - Avoidance of Antibiotic Treatment for Acute Bronchitis/Bronchiolitis [x] The patient has acute bronchitis/bronchiolitis and antibiotics were not prescribed or dispensed today. [S[employer]ISFIES [employer]CE] Discharge Plan Departure Patient Disposition: Home Clinical Impression: Influenza A, Bronchitis, Shortness of breath Instructions: DI for Acute Bronchitis, DI for Influenza -- Adult, DI for Shortness of Breath Activity Restrictions/Additional Instructions: *You have been diagnosed with influenza a with symptom improvement after albuterol. Please have him take the prednisone starting tomorrow for the next 4 days, use the albuterol inhaler with a spacer 4 times a day as needed for shortness of breath or frequent cough, okay to use guaifenesin for productive cough, use Tylenol and ibuprofen as needed for pain, fever, chills, and muscle aches. Please have him stay hydrated with plenty to drink throughout the day, if he has any worsening, have him come back, thank you giuseppe for returning to the emergency department I hope you feel better soon. *What to do: *Please continue to take your regular medications as directed. [ x] New medication prescriptions sent to your pharmacy: [[facility] ] [ ] New medication written as a paper prescription [ ] No new medications given *Please follow up with your primary care provider in 2-3 days, call for an appointment. Let them know you were seen in the Emergency Department and that we asked that you be seen for follow-up. We will electronically transmit a record of today's note if your PCP is in our system *If you do not have a primary care provider please contact [phone] to establish care with one of [facility] primary care providers. *Return to Emergency Department if you should have any new, worsening, or concerning symptoms, such as [fever greater than 101F, chills, worsening pain, persistent vomiting or other bothersome symptoms]. Prescriptions: New albuterol sulfate 90 mcg/actuation HFA aerosol inhaler 1 puff inhalation QID PRN (Reason: shortness of breath or wheezing) Qty: 8.5 0RF (DME) Aerochamber MV Spacer See Rx Instructions .Route Qty: 1 0RF Rx Instructions: As directed prednisone 20 mg tablet 20 mg PO DAILY 4 Days Qty: 4 0RF guaifenesin 600 mg tablet extended release 12hr 600 mg PO BID Qty: 14 0RF No Action benzonatate 100 mg capsule 100 mg PO BID PRN (Reason: cough) Qty: 20 0RF guaifenesin 600 mg tablet extended release 12hr 600 mg PO BID PRN (Reason: cough) Qty: 20 0RF lisinopril 10 mg Tablet 10 mg PO DAILY Referrals: Rosa Isela Garsia MD [Primary Care Provider] - Visit Report Forms: Patient Portal/API <Kaushik Sanchez DO - Last Filed: 02/07/22 22:15> Cosign ED Attending Cosignature Attestation: I was immediately available in the department for consultation. This documentation has been reviewed and I agree with assessment and plan. Supervised by Kaushik Sanchez DO
[2022-02-07 18:28] VITALS: BP 142/85; PULSE 94; TEMP 37.6; O2SAT 95
[2022-02-07] MEDS: ALBUTEROL/IPRATROPIUM 3 ML AMPUL INH (18:37)
[2022-02-07] MEDS: DEXAMETHASONE 10 MG/ML VIAL PO (18:58)
[2022-02-07] MEDS: ACETAMINOPHEN 325 MG TABLET 650 MG PO (18:59)
[2022-02-07] MEDS: GUAIFENESIN/DM 200/20 MG/10 ML UDC PO (19:01)
[2022-02-07] MEDS: ALBUTEROL HFA PREPACK 1 BOX MISC (19:01)
[2022-02-07 19:20] VITALS: PULSE 86; RESP 20; O2SAT 97
== END 2022-02-07 19:23 | disposition home or self-care (01) ==
PROVIDERS: Emergency Provider Nurse Practitioner Critical Care Medicine; PCP Family Medicine
DX: J10.1 Influenza due to other identified influenza virus with other respiratory manifestations (principal); R06.2 Wheezing; Z20.822 Contact with and (suspected) exposure to COVID-19
CPT/HCPCS: 71046; 96372; 99283; 99284; J1100; J1885